=== PATIENT | male | born 1975 | race Caucasian/White ===

== ENCOUNTER 2017-11-17 10:21 | Observation (INO) | payer MEDICAID ==
[~2017-11-17] VITALS: Ht 182.9 cm; Wt 83.5 kg
--- NOTE | ~2017-11-17 | OP ---
PATIENT NAME: OSWALDO VILLEGAS MEDICAL RECORD: [id number] :[birth year] LOCATION:D.MS Cruz2226 ADMISSION DATE:11/17/17 SURGEON: SAGAR CASTELLANOS MD DATE OF OPERATION: 11/18/2017 PREOPERATIVE DIAGNOSES: 1. Left dislocated total hip prosthesis. 2. Chronic alcoholism. POSTOPERATIVE DIAGNOSES: 1. Left dislocated total hip prosthesis. 2. Chronic alcoholism. PROCEDURE: Closed reduction of left total hip prosthesis under general anesthesia with paralytics. SURGEON: Sagar Castellanos MD ANESTHESIA: General. INTRAOPERATIVE COMPLICATIONS: None. SUMMARY OF PATHOLOGIC FINDINGS: When the hip went back in, it was relatively stable. This was done with fluoroscopic guidance. OPERATIVE SUMMARY IN DETAIL: After obtaining the appropriate preoperative orthopedic surgery consent as well as anesthetic consultation, evaluation and clearance, the patient was brought to the operating room and placed in the operating table in supine position. After adequate general endotracheal anesthesia was administered, the patient was given succinylcholine which was ill effective. He was then given rocuronium, which caused for complete paralysis, no twitches. At this point, the hip was very easily reducible. It was stable, taken through a range of motion and did not readily re-dislocate. Abduction pillow was put into place. The patient was reversed, awakened, extubated, and taken to recovery room in stable condition. TRANSINT:[id number] Voice Confirmation ID: [id number] DOCUMENT ID: [id number] SAGAR CASTELLANOS MD at 1410 CC: [id number] DICTATION DATE: 11/19/17 1026 BUSINESS CENTER ATTENDANT: 11/19/17 1207 DIS IN 11/18/17 [facility] [address] [place] [address]
[2017-11-17 16:23] LABS: BASOPHILS 0.7 % (0-2); EOSINOPHILS 0 % (0-7); HEMATOCRIT 35.4 % (42.0-54.0); HEMOGLOBIN 11.9 g/dL (13.5-17.5); LYMPHOCYTES 20.5 % (15-50); MCH 34.4 pg (26.0-34.0); MCHC 33.6 g/dL (31.0-37.0); MCV 102.3 fL (80.0-100.0); MEAN PLATELET VOLUME 9.2 fL (7.4-10.4); MONOCYTES 4.3 % (2-11); NEUTROPHILS 74.5 % (40-80); RBC 3.46 10x6/uL (4.20-6.10); RDW 14.2 % (11.5-14.5); WBC 6.1 10x3/uL (4.8-10.8)
[2017-11-17 16:24] LABS: PLATELET COUNT 104 10x3/uL (130-400)
[2017-11-17 16:40] LABS: ALKALINE PHOSPHATASE 83 U/L (46-116); ALT (SGPT) 64 U/L (10-68); BILIRUBIN - TOTAL 0.53 mg/dL (0.2-1.3); CALC OSMOLALITY 284 mosm/kg (275-300); CALCIUM 8.8 mg/dL (8.5-10.1); CARBON DIOXIDE 25.3 mmol/L (21.0-32.0); CHLORIDE - SERUM 100 mmol/L (98-107); CREATININE - SERUM 0.9 mg/dL (0.6-1.3); GLUCOSE 105 mg/dL (74-106); POTASSIUM - SERUM 3.9 mmol/L (3.5-5.1); PROTEIN - SERUM 8.1 g/dL (6.4-8.2); SODIUM 142 mmol/L (136-145); UREA NITROGEN 18 mg/dL (7-18); eGFR NON AFRICAN AMERICAN > 90 mL/min (90-120)
[2017-11-17 18:50] VITALS: Ht 182.9 cm; Wt 83.5 kg
[2017-11-17] MEDS ORDERED: PAXIL40 MG PO (20:20)
[2017-11-17] MEDS ORDERED: TOPROL XL50 MG PO (20:20)
[2017-11-17] MEDS ORDERED: LIBRIUM25 MG PO (20:21)
[2017-11-17] MEDS ORDERED: PRINZIDE 20-251 TA1 PO (20:21)
[2017-11-17 20:34] VITALS: BP 115/78
[2017-11-18] VITALS: BP 150/93
[2017-11-18 00:03] VITALS: BP 150/93
[2017-11-18 04:16] VITALS: BP 134/84
[2017-11-18 07:51] VITALS: BP 107/80
[2017-11-18 09:48] VITALS: BP 141/92
== END 2017-11-18 12:38 | disposition home or self-care (01) ==
LOC: D.ER 10:21 → D.EDHOLD 13:32 → OBSVTIME 13:33 → D.MS 13:39
PROVIDERS: Nurse Practitioner Family
DX: T84.021A Dislocation of internal left hip prosthesis, initial encounter (principal); F10.20 Alcohol dependence, uncomplicated

== ENCOUNTER 2018-02-21 18:13 | Emergency (ER) | payer MEDICAID ==
[~2018-02-21] VITALS: Ht 182.9 cm; Wt 68.2 kg
[~2018-02-21 18:13] MED LIST: LIBRIUM25 MG PO; PAXIL40 MG PO; PRINZIDE 20-251 TA1 PO; TOPROL XL50 MG PO
[2018-02-21 18:19] VITALS: Ht 182.9 cm; Wt 68.2 kg
[2018-02-21 19:06] LABS: APPEARANCE CLEAR (CLEAR); BILIRUBIN NEGATIVE (NEGATIVE); COLOR DK YELLOW (YELLOW); GLUCOSE NEGATIVE (NEGATIVE); KETONE NEGATIVE (NEGATIVE); NITRITE NEGATIVE (NEGATIVE); PROTEIN TRACE mg/dL (NEGATIVE); UROBILINOGEN NORMAL (NORMAL)
[2018-02-21 19:10] LABS: UDS - AMPHET NEGATIVE QUAL (NEGATIVE); UDS - BARB NEGATIVE QUAL (NEGATIVE); UDS - BENZO POSITIVE QUAL (NEGATIVE); UDS - COCAINE NEGATIVE QUAL (NEGATIVE); UDS - OPIATE NEGATIVE QUAL (NEGATIVE); UDS - PCP NEGATIVE QUAL (NEGATIVE); UDS - THC POSITIVE QUAL (NEGATIVE)
[2018-02-21 19:33] LABS: BASOPHILS 0.6 % (0-2); EOSINOPHILS 1.4 % (0-7); HEMATOCRIT 40.3 % (42.0-54.0); HEMOGLOBIN 13.5 g/dL (13.5-17.5); IMMATURE GRANULOCYTES 0.3 % (0-5); LYMPHOCYTES 29.4 % (15-50); MCH 34.6 pg (26.0-34.0); MCHC 33.5 g/dL (31.0-37.0); MCV 103.3 fL (80.0-100.0); MEAN PLATELET VOLUME 8.9 fL (7.4-10.4); MONOCYTES 3.6 % (2-11); NEUTROPHILS 64.7 % (40-80); RDW 15.8 % (11.5-14.5); WBC 6.6 10x3/uL (4.8-10.8)
[2018-02-21 19:53] LABS: ALBUMIN 3.7 g/dL (3.4-5.0); ALKALINE PHOSPHATASE 88 U/L (46-116); ALT (SGPT) 66 U/L (10-68); BILIRUBIN - TOTAL 0.23 mg/dL (0.2-1.3); CALC OSMOLALITY 293 mosm/kg (275-300); CALCIUM 8.3 mg/dL (8.5-10.1); CARBON DIOXIDE 25.8 mmol/L (21.0-32.0); CHLORIDE - SERUM 108 mmol/L (98-107); CREATININE - SERUM 0.9 mg/dL (0.6-1.3); GLUCOSE 80 mg/dL (74-106); POTASSIUM - SERUM 3.7 mmol/L (3.5-5.1); PROTEIN - SERUM 7.8 g/dL (6.4-8.2); SODIUM 148 mmol/L (136-145); UREA NITROGEN 15 mg/dL (7-18); eGFR NON AFRICAN AMERICAN > 90 mL/min (90-120)
[2018-02-21 19:55] LABS: PLATELET COUNT 192 10x3/uL (130-400)
[2018-02-21 23:00] VITALS: BP 152/94
[2018-02-25 22:07] LABS: CHLORDIAZEPOXIDE None Detected (()); NORCHLORDIAZEPOXIDE None Detected (()); NORDIAZEPAM 0.5 ug/mL (())
== END 2018-02-21 23:00 | disposition home or self-care (01) ==
LOC: D.ER 18:13
PROVIDERS: Family Medicine
DX: F10.129 Alcohol abuse with intoxication, unspecified (principal); F10.10 Alcohol abuse, uncomplicated; I10 Essential (primary) hypertension; F17.200 Nicotine dependence, unspecified, uncomplicated

== ENCOUNTER 2018-02-26 21:08 | Emergency (ER) | payer MEDICAID ==
[~2018-02-26] VITALS: Ht 182.9 cm; Wt 77.1 kg
[2018-02-26 21:25] VITALS: Ht 182.9 cm; Wt 77.1 kg
[2018-02-26 22:42] LABS: BASOPHILS 0.3 % (0-2); EOSINOPHILS 0.6 % (0-7); HEMATOCRIT 34.2 % (42.0-54.0); HEMOGLOBIN 11.6 g/dL (13.5-17.5); IMMATURE GRANULOCYTES 0.3 % (0-5); LYMPHOCYTES 34.2 % (15-50); MCH 34.5 pg (26.0-34.0); MCHC 33.9 g/dL (31.0-37.0); MCV 101.8 fL (80.0-100.0); MEAN PLATELET VOLUME 9.9 fL (7.4-10.4); MONOCYTES 4.9 % (2-11); NEUTROPHILS 59.7 % (40-80); RBC 3.36 10x6/uL (4.20-6.10); WBC 6.3 10x3/uL (4.8-10.8)
[2018-02-26 22:46] LABS: PLATELET COUNT 74 10x3/uL (130-400)
[2018-02-26 22:53] LABS: PLATELET ESTIMATE DECREASED
[2018-02-26 23:00] LABS: ALKALINE PHOSPHATASE 99 U/L (46-116); ALT (SGPT) 53 U/L (10-68); BILIRUBIN - TOTAL 0.23 mg/dL (0.2-1.3); CALC OSMOLALITY 291 mosm/kg (275-300); CALCIUM 7.6 mg/dL (8.5-10.1); CARBON DIOXIDE 31.4 mmol/L (21.0-32.0); CHLORIDE - SERUM 107 mmol/L (98-107); CREATININE - SERUM 0.9 mg/dL (0.6-1.3); GLUCOSE 96 mg/dL (74-106); POTASSIUM - SERUM 3.4 mmol/L (3.5-5.1); PROTEIN - SERUM 7.2 g/dL (6.4-8.2); SODIUM 146 mmol/L (136-145); UREA NITROGEN 14 mg/dL (7-18); eGFR NON AFRICAN AMERICAN > 90 mL/min (90-120)
[2018-02-27 04:48] VITALS: BP 129/84
[2018-02-27] MEDS ORDERED: HYDROCODON-ACE1 EAC7 PO (04:50)
== END 2018-02-27 04:58 | disposition home or self-care (01) ==
LOC: D.ER 21:08
PROVIDERS: Emergency Medicine
DX: S73.005A Unspecified dislocation of left hip, initial encounter (principal); W19.XXXA Unspecified fall, initial encounter; Y93.89 Activity, other specified; Y92.89 Other specified places as the place of occurrence of the external cause

== ENCOUNTER 2018-03-02 21:31 | Emergency (ER) | payer MEDICAID ==
[~2018-03-02] VITALS: Ht 182.9 cm; Wt 83.9 kg
[~2018-03-02 21:31] MED LIST changes: +HYDROCODON-ACE1 EAC7 PO
[2018-03-02 21:34] VITALS: Ht 182.9 cm; Wt 83.9 kg
[2018-03-02 21:56] LABS: APPEARANCE CLEAR (CLEAR); BILIRUBIN NEGATIVE (NEGATIVE); COLOR YELLOW (YELLOW); GLUCOSE NEGATIVE (NEGATIVE); KETONE NEGATIVE (NEGATIVE); NITRITE NEGATIVE (NEGATIVE); PROTEIN NEGATIVE (NEGATIVE); SPECIFIC GRAVITY 1.005 (1.005-1.020); UROBILINOGEN NORMAL (NORMAL)
[2018-03-02 21:57] LABS: BASOPHILS 0.3 % (0-2); IMMATURE GRANULOCYTES 0.3 % (0-5); LYMPHOCYTES 34.5 % (15-50); MCH 34.6 pg (26.0-34.0); MCHC 34.4 g/dL (31.0-37.0); MCV 100.6 fL (80.0-100.0); MEAN PLATELET VOLUME 9.5 fL (7.4-10.4); NEUTROPHILS 58.9 % (40-80); RBC 3.18 10x6/uL (4.20-6.10); RDW 15.9 % (11.5-14.5)
[2018-03-02 22:01] LABS: PLATELET COUNT 45 10x3/uL (130-400)
[2018-03-02 22:14] LABS: UDS - AMPHET NEGATIVE QUAL (NEGATIVE); UDS - BARB NEGATIVE QUAL (NEGATIVE); UDS - BENZO POSITIVE QUAL (NEGATIVE); UDS - COCAINE NEGATIVE QUAL (NEGATIVE); UDS - OPIATE NEGATIVE QUAL (NEGATIVE); UDS - PCP NEGATIVE QUAL (NEGATIVE); UDS - THC NEGATIVE QUAL (NEGATIVE)
[2018-03-02 22:15] LABS: PLATELET ESTIMATE DECREASED
[2018-03-02 22:16] LABS: ALBUMIN 3.4 g/dL (3.4-5.0); ALKALINE PHOSPHATASE 108 U/L (46-116); ALT (SGPT) 39 U/L (10-68); BILIRUBIN - TOTAL 0.76 mg/dL (0.2-1.3); CALC OSMOLALITY 286 mosm/kg (275-300); CALCIUM 8.2 mg/dL (8.5-10.1); CARBON DIOXIDE 30.5 mmol/L (21.0-32.0); CHLORIDE - SERUM 104 mmol/L (98-107); CREATININE - SERUM 0.6 mg/dL (0.6-1.3); GLUCOSE 101 mg/dL (74-106); POTASSIUM - SERUM 3.3 mmol/L (3.5-5.1); PROTEIN - SERUM 7.7 g/dL (6.4-8.2); SODIUM 145 mmol/L (136-145); UREA NITROGEN 7 mg/dL (7-18); eGFR NON AFRICAN AMERICAN > 90 mL/min (90-120)
[2018-03-03 10:30] VITALS: BP 136/92
== END 2018-03-03 11:21 ==
LOC: D.ER 21:31
PROVIDERS: Family Medicine
DX: R45.851 Suicidal ideations (principal); F10.10 Alcohol abuse, uncomplicated; Z86.59 Personal history of other mental and behavioral disorders

== ENCOUNTER 2018-06-17 14:26 | Emergency (ER) | payer MEDICAID ==
[~2018-06-17] VITALS: Ht 182.9 cm; Wt 77.3 kg
[2018-06-17 14:30] VITALS: Ht 182.9 cm; Wt 77.3 kg
[2018-06-17] MEDS ORDERED: TORADOL10 MG PO (17:22)
[2018-06-17 17:30] VITALS: BP 123/80
== END 2018-06-17 17:31 | disposition home or self-care (01) ==
LOC: D.ER 14:26
DX: S01.01XA Laceration without foreign body of scalp, initial encounter (principal); Y04.2XXA Assault by strike against or bumped into by another person, initial encounter; Y93.89 Activity, other specified; Y92.019 Unspecified place in single-family (private) house as the place of occurrence of the external cause; R51 Headache

== ENCOUNTER 2018-08-28 17:16 | Emergency (ER) | payer SELFPAY ==
[~2018-08-28] VITALS: Ht 182.9 cm; Wt 79.5 kg
[~2018-08-28 17:16] MED LIST changes: +TORADOL10 MG PO
[2018-08-28 17:19] VITALS: Ht 182.9 cm; Wt 79.5 kg
[2018-08-28 17:52] LABS: UDS - AMPHET NEGATIVE QUAL (NEGATIVE); UDS - BARB NEGATIVE QUAL (NEGATIVE); UDS - BENZO NEGATIVE QUAL (NEGATIVE); UDS - COCAINE NEGATIVE QUAL (NEGATIVE); UDS - OPIATE NEGATIVE QUAL (NEGATIVE); UDS - PCP NEGATIVE QUAL (NEGATIVE); UDS - THC NEGATIVE QUAL (NEGATIVE)
[2018-08-28 18:18] LABS: BASOPHILS 0.4 % (0-2); EOSINOPHILS 0.2 % (0-7); IMMATURE GRANULOCYTES 0.5 % (0-5); LYMPHOCYTES 27.3 % (15-50); MCH 32.3 pg (26.0-34.0); MCHC 34.2 g/dL (31.0-37.0); MCV 94.3 fL (80.0-100.0); MEAN PLATELET VOLUME 8.8 fL (7.4-10.4); MONOCYTES 5.1 % (2-11); NEUTROPHILS 66.5 % (40-80); RBC 4.03 10x6/uL (4.20-6.10); RDW 12.6 % (11.5-14.5); WBC 12.3 10x3/uL (4.8-10.8)
[2018-08-28 18:21] LABS: PLATELET COUNT 100 10x3/uL (130-400)
[2018-08-28 18:35] LABS: CALC OSMOLALITY 284 mosm/kg (275-300); CALCIUM 8.5 mg/dL (8.5-10.1); CARBON DIOXIDE 23.9 mmol/L (21.0-32.0); CHLORIDE - SERUM 104 mmol/L (98-107); CREATININE - SERUM 0.7 mg/dL (0.6-1.3); GLUCOSE 104 mg/dL (74-106); POTASSIUM - SERUM 3.3 mmol/L (3.5-5.1); SODIUM 142 mmol/L (136-145); THYROID STIMULATING HORMONE 0.78 uIU/mL (0.36-3.74); UREA NITROGEN 17 mg/dL (7-18); eGFR NON AFRICAN AMERICAN > 90 mL/min (90-120)
[2018-08-29 06:44] VITALS: BP 161/101
== END 2018-08-29 06:44 | disposition home or self-care (01) ==
LOC: D.ER 17:16
PROVIDERS: Family Medicine
DX: F32.9 Major depressive disorder, single episode, unspecified (principal); Z72.89 Other problems related to lifestyle; R45.851 Suicidal ideations; I10 Essential (primary) hypertension; F17.200 Nicotine dependence, unspecified, uncomplicated

== ENCOUNTER 2018-12-22 15:15 | Emergency (ER) | payer MEDICAID ==
[2018-12-22 15:20] VITALS: BMI 24.4
[2018-12-22 15:50] LABS: HEMATOCRIT 38.9 % (42.0-54.0); HEMOGLOBIN 13.3 g/dL (13.5-17.5); MCH 34.1 pg (26.0-34.0); MCHC 34.2 g/dL (31.0-37.0); MCV 99.7 fL (80.0-100.0); MEAN PLATELET VOLUME 9.3 fL (7.4-10.4); RDW 14.2 % (11.5-14.5); WBC 4.4 10x3/uL (4.8-10.8)
[2018-12-22 15:52] LABS: PLATELET COUNT 200 10x3/uL (130-400)
[2018-12-22 16:05] VITALS: BP 128/82
[2018-12-22 16:05] LABS: ALBUMIN 3.6 g/dL (3.4-5.0); ALKALINE PHOSPHATASE 86 U/L (46-116); ALT (SGPT) 47 U/L (10-68); BILIRUBIN - TOTAL 0.14 mg/dL (0.2-1.3); CALC OSMOLALITY 289 mosm/kg (275-300); CALCIUM 8.2 mg/dL (8.5-10.1); CARBON DIOXIDE 25.1 mmol/L (21.0-32.0); CHLORIDE - SERUM 110 mmol/L (98-107); CREATININE - SERUM 0.8 mg/dL (0.6-1.3); GLUCOSE 105 mg/dL (74-106); POTASSIUM - SERUM 3.9 mmol/L (3.5-5.1); PROTEIN - SERUM 7.7 g/dL (6.4-8.2); SODIUM 145 mmol/L (136-145); UREA NITROGEN 14 mg/dL (7-18); eGFR NON AFRICAN AMERICAN > 90 mL/min (90-120)
[2018-12-22 16:07] LABS: MAGNESIUM - SERUM 1.9 mg/dL (1.8-2.4)
[2018-12-22 16:18] LABS: BASOPHILS 1 % (0-2); EOSINOPHILS 5 % (0-7); LYMPHOCYTES 52 % (15-50); MONOCYTES 1 % (2-11); NEUTROPHILS 41 % (40-80); STOMATOCYTES 1+; TARGET CELLS OCC; TEAR DROP CELLS OCC
[2018-12-22 16:19] LABS: PLATELET ESTIMATE NORMAL
[2018-12-22] MEDS ORDERED: LIBRIUM25 MG PO (16:19)
[2018-12-22 16:38] LABS: UDS - AMPHET NEGATIVE QUAL (NEGATIVE); UDS - BARB NEGATIVE QUAL (NEGATIVE); UDS - BENZO NEGATIVE QUAL (NEGATIVE); UDS - COCAINE NEGATIVE QUAL (NEGATIVE); UDS - OPIATE NEGATIVE QUAL (NEGATIVE); UDS - PCP NEGATIVE QUAL (NEGATIVE); UDS - THC NEGATIVE QUAL (NEGATIVE)
[2018-12-22 16:43] LABS: APPEARANCE CLEAR (CLEAR); BILIRUBIN NEGATIVE (NEGATIVE); COLOR YELLOW (YELLOW); GLUCOSE NEGATIVE (NEGATIVE); KETONE NEGATIVE (NEGATIVE); NITRITE NEGATIVE (NEGATIVE); PROTEIN NEGATIVE (NEGATIVE); SPECIFIC GRAVITY 1.015 (1.005-1.020); UROBILINOGEN NORMAL (NORMAL)
== END 2018-12-22 16:50 | disposition home or self-care (01) ==
LOC: D.ER 15:15
PROVIDERS: Emergency Medicine
DX: F10.10 Alcohol abuse, uncomplicated (principal)

== ENCOUNTER 2019-02-02 02:26 | Emergency (ER) | payer MEDICAID ==
[~2019-02-02] VITALS: Ht 182.9 cm; Wt 79.4 kg
[2019-02-02 02:31] VITALS: Ht 182.9 cm; Wt 79.4 kg
[2019-02-02] MEDS ORDERED: BLOOD PRESSURE MED (02:44)
[2019-02-02] MEDS ORDERED: PAXIL40 MG PO (02:44)
[2019-02-02 03:19] LABS: BASOPHILS 0.2 % (0-2); EOSINOPHILS 0.5 % (0-7); HEMATOCRIT 43.8 % (42.0-54.0); HEMOGLOBIN 15.1 g/dL (13.5-17.5); IMMATURE GRANULOCYTES 0.4 % (0-5); LYMPHOCYTES 10.4 % (15-50); MCH 33.6 pg (26.0-34.0); MCHC 34.5 g/dL (31.0-37.0); MCV 97.6 fL (80.0-100.0); MEAN PLATELET VOLUME 10.7 fL (7.4-10.4); MONOCYTES 7.9 % (2-11); NEUTROPHILS 80.6 % (40-80); RBC 4.49 10x6/uL (4.20-6.10); WBC 14.1 10x3/uL (4.8-10.8)
[2019-02-02 03:36] LABS: PLATELET COUNT 109 10x3/uL (130-400)
[2019-02-02 03:52] LABS: ALBUMIN 3.5 g/dL (3.4-5.0); ANION GAP 25.6 mmol/L (8-16); BILIRUBIN - TOTAL 0.88 mg/dL (0.2-1.3); CALCIUM 8.5 mg/dL (8.5-10.1); CARBON DIOXIDE 16.6 mmol/L (21.0-32.0); CREATININE - SERUM 1.2 mg/dL (0.6-1.3); POTASSIUM - SERUM 3.2 mmol/L (3.5-5.1); PROTEIN - SERUM 7.7 g/dL (6.4-8.2)
[2019-02-02 05:43] VITALS: BP 138/66
== END 2019-02-02 05:45 | disposition other institution (70) ==
LOC: D.ER 02:26
PROVIDERS: Emergency Medicine
DX: F15.150 Other stimulant abuse with stimulant-induced psychotic disorder with delusions (principal); S11.81XA Laceration without foreign body of other specified part of neck, initial encounter; X78.8XXA Intentional self-harm by other sharp object, initial encounter; Y93.89 Activity, other specified; Y92.89 Other specified places as the place of occurrence of the external cause

== ENCOUNTER 2019-04-22 15:34 | Inpatient (IN) | payer MEDICAID ==
[~2019-04-22] VITALS: Ht 182.9 cm; Wt 79.5 kg
[~2019-04-22 15:34] MED LIST changes: +BLOOD PRESSURE MED
[2019-04-22 16:56] LABS: BASOPHILS 0.7 % (0-2); EOSINOPHILS 0.3 % (0-7); IMMATURE GRANULOCYTES 0.2 % (0-5); LYMPHOCYTES 31.4 % (15-50); MCH 34.4 pg (26.0-34.0); MCV 98.3 fL (80.0-100.0); MEAN PLATELET VOLUME 8.9 fL (7.4-10.4); MONOCYTES 3.4 % (2-11); PLATELET COUNT 226 10x3/uL (130-400); RBC 4.07 10x6/uL (4.20-6.10); RDW 13.8 % (11.5-14.5); WBC 10.7 10x3/uL (4.8-10.8)
[2019-04-22 17:07] LABS: ALBUMIN 4.2 g/dL (3.4-5.0); ALKALINE PHOSPHATASE 90 U/L (46-116); ALT (SGPT) 84 U/L (10-68); BILIRUBIN - TOTAL 0.21 mg/dL (0.2-1.3); CALC OSMOLALITY 291 mosm/kg (275-300); CALCIUM 8.9 mg/dL (8.5-10.1); CARBON DIOXIDE 26.5 mmol/L (21.0-32.0); CHLORIDE - SERUM 105 mmol/L (98-107); GLUCOSE 105 mg/dL (74-106); POTASSIUM - SERUM 4.3 mmol/L (3.5-5.1); PROTEIN - SERUM 8.1 g/dL (6.4-8.2); SODIUM 145 mmol/L (136-145); UREA NITROGEN 21 mg/dL (7-18); eGFR NON AFRICAN AMERICAN 87 mL/min (90-120)
[2019-04-22 17:18] LABS: CREATINE KINASE 294 UL (21-232); MAGNESIUM - SERUM 1.8 mg/dL (1.8-2.4); TROPONIN-I < 0.017 ng/mL (0.000-0.060)
[2019-04-22 21:30] LABS: CKMB 2.5 U/L (0.0-3.6); CREATINE KINASE 296 UL (21-232); TROPONIN-I < 0.017 ng/mL (0.000-0.060)
[2019-04-23 00:37] VITALS: BP 141/99; Ht 182.9 cm; Wt 79.5 kg
[2019-04-23 00:41] VITALS: BP 133/84
[2019-04-23 03:23] LABS: BASOPHILS 0.4 % (0-2); EOSINOPHILS 0.1 % (0-7); HEMATOCRIT 34.6 % (42.0-54.0); HEMOGLOBIN 12.3 g/dL (13.5-17.5); IMMATURE GRANULOCYTES 0.3 % (0-5); LYMPHOCYTES 32.5 % (15-50); MCH 34.4 pg (26.0-34.0); MCHC 35.5 g/dL (31.0-37.0); MCV 96.6 fL (80.0-100.0); MEAN PLATELET VOLUME 8.8 fL (7.4-10.4); MONOCYTES 7.1 % (2-11); NEUTROPHILS 59.6 % (40-80); PLATELET COUNT 195 10x3/uL (130-400); RBC 3.58 10x6/uL (4.20-6.10); RDW 13.8 % (11.5-14.5); WBC 9.8 10x3/uL (4.8-10.8)
[2019-04-23 04:00] LABS: ALBUMIN 3.7 g/dL (3.4-5.0); ALKALINE PHOSPHATASE 68 U/L (46-116); ALT (SGPT) 70 U/L (10-68); BILIRUBIN - TOTAL 0.28 mg/dL (0.2-1.3); CALC OSMOLALITY 281 mosm/kg (275-300); CALCIUM 8.2 mg/dL (8.5-10.1); CHLORIDE - SERUM 106 mmol/L (98-107); CKMB 2.6 U/L (0.0-3.6); CREATINE KINASE 458 UL (21-232); CREATININE - SERUM 0.8 mg/dL (0.6-1.3); GLUCOSE 70 mg/dL (74-106); POTASSIUM - SERUM 3.9 mmol/L (3.5-5.1); PROTEIN - SERUM 7.5 g/dL (6.4-8.2); SODIUM 142 mmol/L (136-145); TROPONIN-I < 0.017 ng/mL (0.000-0.060); UREA NITROGEN 14 mg/dL (7-18); eGFR NON AFRICAN AMERICAN > 90 mL/min (90-120)
[2019-04-23 04:35] VITALS: BP 176/108
[2019-04-23 09:37] LABS: UDS - AMPHET NEGATIVE QUAL (NEGATIVE); UDS - BARB NEGATIVE QUAL (NEGATIVE); UDS - BENZO NEGATIVE QUAL (NEGATIVE); UDS - COCAINE NEGATIVE QUAL (NEGATIVE); UDS - OPIATE POSITIVE QUAL (NEGATIVE); UDS - PCP NEGATIVE QUAL (NEGATIVE); UDS - THC POSITIVE QUAL (NEGATIVE)
[2019-04-23 09:50] LABS: CKMB 2.5 U/L (0.0-3.6); CREATINE KINASE 539 UL (21-232)
[2019-04-23 09:51] LABS: TROPONIN-I < 0.017 ng/mL (0.000-0.060)
[2019-04-23 10:19] LABS: APPEARANCE CLEAR (CLEAR); COLOR YELLOW (YELLOW); GLUCOSE NEGATIVE (NEGATIVE); NITRITE NEGATIVE (NEGATIVE); PROTEIN NEGATIVE (NEGATIVE); SPECIFIC GRAVITY 1.025 (1.005-1.020)
[2019-04-23 10:20] LABS: BACTERIA FEW /hpf (NONE SEEN); BILIRUBIN NEGATIVE (NEGATIVE); EPITHELIAL CELLS RARE /hpf (0-5); KETONE MODERATE mg/dL (NEGATIVE); RED CELLS - URINE OCC /hpf (0-5); UROBILINOGEN NORMAL (NORMAL)
[2019-04-23 12:37] VITALS: BP 163/94
[2019-04-23] MEDS ORDERED: CATAPRES0.1 MG PO (12:43)
[2019-04-23] MEDS ORDERED: NORVASC5 MG PO (13:30)
[2019-04-23] MEDS ORDERED: HYDROCODON-ACE1 EA10 PO (13:35)
[2019-04-23 13:55] VITALS: BP 152/92
--- NOTE | 2019-04-23 14:55 | MORECARE ---
CASE MANAGEMENT DISCHARGE SUMMARY PATIENT: OSWALDO VILLEGAS UNIT: [id number] ADM DATE: 04/22/19 AGE: 44 : 79 SEX: M ROOM/BED: D.2233 AUTHOR: JEB GOMEZ PHYSICIAN: REFERRING PHYSICIAN: JESIKA GRIDER MD DATE OF SERVICE: 04/23/19 Discharge Plan Patient Name: OSWALDO VILLEGAS [facility] : 1975 Planned Disposition: Home Anticipated Discharge Date: 04/23/19 Discharge Date: Expected LOS: 1 Initial Reviewer: [email or web address] Initial Review Date: 04/24/2019 Generated: 04/23/19 3:54 pm DCPIA - Discharge Planning Initial Assessment Updated by [email or web address]: Tahira Diaz on 04/23/19 2:54 pm * Is the patient Alert and Oriented? Yes * How many steps to enter\exit or inside your home? 3w/rails/0 * PCP Dr. Hilario * [place] [facility] [place] [address] * Preadmission Environment Home with Family * ADLs Independent * Equipment None * List name and contact numbers for known caregivers / representatives who currently or will assist patient after discharge: Isabela Mckeon [facility] - [phone] * Verbal permission to speak to the caregivers and representatives has been obtained from the patient. Yes * Community resources currently utilized None * Additional services required to return to the preadmission environment? No * Can the patient safely return to the preadmission environment? Yes * Has this patient been hospitalized within the prior 30 days at any hospital? No Patient Name: OSWALDO VILLEGAS Page [id number] at 1455 All edits/amendments must be made on the electronic document DICTATION DATE: 04/23/191453 GENERAL ACCOUNTING MANAGER: TAMIKO 04/23/191453 RPT#: [id number] DC DATE: STATUS: ADM IN [facility] [address] [place] [address] END OF REPORT
--- NOTE | 2019-04-23 15:03 | MORECARE ---
CASE MANAGEMENT DISCHARGE SUMMARY PATIENT: OSWALDO VILLEGAS UNIT: [id number] ADM DATE: 04/22/19 AGE: 44 : 79 SEX: M ROOM/BED: D.2233 AUTHOR: PATRICIADOC PHYSICIAN: REFERRING PHYSICIAN: JESIKA GRIDER MD DATE OF SERVICE: 04/23/19 Discharge Plan Patient Name: OSWALDO VILLEGAS Facility: [facility]:[place] : 1975 Planned Disposition: Home Anticipated Discharge Date: 04/23/19 Discharge Date: 04/23/2019 Expected LOS: 1 Initial Reviewer: [email or web address] Initial Review Date: 04/24/2019 Generated: 04/23/19 4:03 pm Comments DCP- Discharge Planning Updated by [email or web address]: Tahira Diaz on 04/23/19 1:[address] Patient Name: OSWALDO VILLEGAS Admission Status: ER Accout number: [id number] Admission Date: 04-22-2019 : 1975 Admission Diagnosis: Attending: JESIKA SOLER Current LOS: 1 Anticipated DC Date: 04-23-2019 Planned Disposition: Home Primary Insurance: MEDICAID [place] Discharge Planning Comments: CM met with patient to complete initial dc planning assessment. CM educated patient on the CM role and verbal consent given by patient to complete assessment. Patient lives at home with his mote and step mother. He plans to return home and feels this is a safe discharge. CM discussed availability of home health and medical equipment. Patient denied needs at this time. CM will continue to follow and will assist as needed with dc plans/needs. States his mother will pick him up on discharge. Air Shovel Operator: Tahira Diaz DCPIA - Discharge Planning Initial Assessment Updated by [email or web address]: Tahira Diaz on 04/23/19 2:54 pm * Is the patient Alert and Oriented? Yes * How many steps to enter\exit or inside your home? 3w/rails/0 * PCP Dr. Hilario * Pharmacy [facility] [address] * Preadmission Environment Home with Family * ADLs Independent * Equipment None * List name and contact numbers for known caregivers / representatives who currently or will assist patient after discharge: Isabela Mckeon - mother - [phone] * Verbal permission to speak to the caregivers and representatives has been obtained from the patient. Yes * Community resources currently utilized None * Additional services required to return to the preadmission environment? No * Can the patient safely return to the preadmission environment? Yes * Has this patient been hospitalized within the prior 30 days at any hospital? No Last DP export: 04/23/19 1:55 pm Patient Name: OSWALDO VILLEGAS Page [id number] at 1503 All edits/amendments must be made on the electronic document DICTATION DATE: 04/23/19 1502 MAINTENANCE ASSISTANT: TAMIKO 04/23/19 1502 RPT#: [id number] DC DATE:04/23/19 STATUS: DIS IN [facility] [address] [place] [address] END OF REPORT
--- NOTE | 2019-04-24 12:40 | OP ---
PATIENT NAME: OSWALDO VILLEGAS MEDICAL RECORD: [id number] :[birth year] LOCATION:D.MS Cruz2233 ADMISSION DATE:04/22/19 SURGEON: SAGAR CASTELLANOS MD DATE OF OPERATION: 04/23/2019 PREOPERATIVE DIAGNOSIS: Closed dislocation of a left total hip prosthesis. POSTOPERATIVE DIAGNOSIS: Closed dislocation of a left total hip prosthesis. PROCEDURE: Closed reduction of left total hip prosthesis under anesthesia - General. ANESTHESIA: General. INTRAOPERATIVE COMPLICATIONS: None. SUMMARY OF PATHOLOGIC FINDINGS: Essentially none. INDICATIONS: Mr. Holbrook is a patient with a known dislocated hip. Unfortunately, he has been an addict and abuser and he has been in several times with dislocated hip as long as he is stable. He tends not to dislocate his hip. This is his first dislocation in approximately 12 months. He presented last night with a dislocation, which was irreducible under relatively conscious sedation. He was brought to the operating room this morning for paralytics and resulted in excellent reduction. OPERATIVE SUMMARY IN DETAIL: After obtaining the appropriate preoperative orthopedic surgery consent as well as anesthetic consultation, evaluation and clearance, the patient was brought to the operating room and left on his on the [facility]. On the [facility], he was given adequate sedation including but not limited to succinylcholine. After he was de-fasciculated, traction-countertraction maneuver resulted in excellent reduction of the hip, it was quite difficult to get in keeping with his prior history of dislocations. After reduction was made, intraoperative radiographs were taken that showed excellent reduction. He was then placed in an abductor splint and sent to the recovery room in stable condition. TRANSINT:[id number] Voice Confirmation ID: [id number] DOCUMENT ID: [id number] SAGAR CASTELLANOS MD at 1240 CC: [id number] DICTATION DATE: 04/23/192121 DISABILITIES SERVICES OFFICER: 04/24/19 0126 DIS IN 04/23/19 [facility] [id number] [place] [address]
--- NOTE | 2019-04-28 12:41 | MORECARE ---
CASE MANAGEMENT DISCHARGE SUMMARY PATIENT: OSWALDO VILLEGAS UNIT: [id number] ADM DATE: 04/22/19 AGE: 44 : 79 SEX: M ROOM/BED: D.2233 AUTHOR: PATRICIADOC PHYSICIAN: REFERRING PHYSICIAN: JESIKA GRIDER MD DATE OF SERVICE: 04/28/19 Discharge Plan Patient Name: OSWALDO VILLEGAS Facility: [facility]:[place] : 1975 Planned Disposition: Home Anticipated Discharge Date: 04/23/19 Discharge Date: 04/23/2019 Expected LOS: 1 Initial Reviewer: [email or web address] Initial Review Date: 04/24/2019 Generated: 04/28/19 1:41 pm Comments DCP- Discharge Planning Updated by [id number]: Tahira Diaz on 04/23/19 1:[address] Patient Name: OSWALDO VILLEGAS Admission Status: ER Accout number: [id number] Admission Date: 04-22-2019 : 1975 Admission Diagnosis: Attending: JESIKA SOLER Current LOS: 1 Anticipated DC Date: 04-23-2019 Planned Disposition: Home Primary Insurance: MEDICAID [place] Discharge Planning Comments: CM met with patient to complete initial dc planning assessment. CM educated patient on the CM role and verbal consent given by patient to complete assessment. Patient lives at home with his mote and step mother. He plans to return home and feels this is a safe discharge. CM discussed availability of home health and medical equipment. Patient denied needs at this time. CM will continue to follow and will assist as needed with dc plans/needs. States his mother will pick him up on discharge. Senior Marketing Manager: Tahira Diaz DCPIA - Discharge Planning Initial Assessment Updated by [email or web address]: Tahira Diaz on 04/23/19 2:54 pm * Is the patient Alert and Oriented? Yes * How many steps to enter\exit or inside your home? 3w/rails/0 * PCP Dr. Hilario * Pharmacy [facility] [address] * Preadmission Environment Home with Family * ADLs Independent * Equipment None * List name and contact numbers for known caregivers / representatives who currently or will assist patient after discharge: Isabela Mckeon - mother - [phone] * Verbal permission to speak to the caregivers and representatives has been obtained from the patient. Yes * Community resources currently utilized None * Additional services required to return to the preadmission environment? No * Can the patient safely return to the preadmission environment? Yes * Has this patient been hospitalized within the prior 30 days at any hospital? No Last DP export: 04/23/19 2:03 pm Patient Name: OSWALDO VILLEGAS Page [phone] at 1241 All edits/amendments must be made on the electronic document DICTATION DATE: 04/28/19 1241 RETAIL SALESPERSON: TAMIKO 04/28/19 1241 RPT#: [id number] DC DATE:04/23/19 STATUS: DIS IN [facility] [facility] [id number] [place] [address] END OF REPORT
== END 2019-04-23 15:02 | disposition home or self-care (01) | DRG 561 ==
LOC: D.ER 15:34 → D.MS 17:49
PROVIDERS: Family Medicine; Orthopaedic Surgery; ADMIT Family Medicine Adult Medicine; ATTEND Family Medicine Adult Medicine
PROC: 0SWBXJZ Revision of Synthetic Substitute in Left Hip Joint, External Approach (ICD-10-PCS; principal; 2019-04-23 07:39)
DX: T84.021A Dislocation of internal left hip prosthesis, initial encounter (principal); F10.129 Alcohol abuse with intoxication, unspecified; Y90.8 Blood alcohol level of 240 mg/100 ml or more; W19.XXXA Unspecified fall, initial encounter

== ENCOUNTER → 2019-05-07 18:11 | Outpatient (CLI) | payer MEDICAID ==
[2019-04-23 00:37] VITALS: BMI 23.8
[~2019-05-07 18:11] MED LIST changes: +CATAPRES0.1 MG PO; +HYDROCODON-ACE1 EA10 PO; +MAG-OXIDE400 MG PO; +NORVASC5 MG PO
== END | disposition home or self-care (01) ==
LOC: D.LABREF 18:11
PROVIDERS: ATTEND Orthopaedic Surgery
DX: T84.84XA Pain due to internal orthopedic prosthetic devices, implants and grafts, initial encounter (principal)

== ENCOUNTER 2019-05-09 14:52 | Inpatient (IN) | payer MEDICAID ==
[~2019-05-09] VITALS: Ht 180.3 cm; Wt 79.5 kg
[~2019-05-09 14:52] MED LIST changes: -MAG-OXIDE400 MG PO
[2019-05-13] MEDS ORDERED: MAG-OXIDE400 MG PO (11:01)
[2019-05-27] MEDS ORDERED: PROZAC20 MG PO (14:45)
[2019-05-27] MEDS ORDERED: TENORMIN25 MG PO (14:46)
[2019-05-27] MEDS ORDERED: NEURONTIN 300300 MG PO (14:46)
[2019-05-28 12:24] LABS: BASOPHILS 0.3 % (0-2); EOSINOPHILS 1.7 % (0-7); HEMATOCRIT 40.4 % (42.0-54.0); HEMOGLOBIN 13.8 g/dL (13.5-17.5); IMMATURE GRANULOCYTES 0.3 % (0-5); LYMPHOCYTES 31.6 % (15-50); MCH 34.2 pg (26.0-34.0); MCHC 34.2 g/dL (31.0-37.0); MONOCYTES 5.9 % (2-11); NEUTROPHILS 60.2 % (40-80); PLATELET COUNT 250 10x3/uL (130-400); RBC 4.04 10x6/uL (4.20-6.10); RDW 12.6 % (11.5-14.5); WBC 11.4 10x3/uL (4.8-10.8)
[2019-05-28 12:31] LABS: CALC OSMOLALITY 288 mosm/kg (275-300); CALCIUM 9.2 mg/dL (8.5-10.1); CARBON DIOXIDE 27.1 mmol/L (21.0-32.0); CHLORIDE - SERUM 107 mmol/L (98-107); CREATININE - SERUM 0.8 mg/dL (0.6-1.3); GLUCOSE 101 mg/dL (74-106); POTASSIUM - SERUM 4.2 mmol/L (3.5-5.1); SODIUM 144 mmol/L (136-145); UREA NITROGEN 17 mg/dL (7-18); eGFR NON AFRICAN AMERICAN > 90 mL/min (90-120)
[2019-05-28 12:32] LABS: APPEARANCE CLEAR (CLEAR); BILIRUBIN NEGATIVE (NEGATIVE); COLOR STRAW (YELLOW); GLUCOSE NEGATIVE (NEGATIVE); KETONE NEGATIVE (NEGATIVE); NITRITE NEGATIVE (NEGATIVE); PROTEIN NEGATIVE (NEGATIVE); SPECIFIC GRAVITY 1.005 (1.005-1.020); UROBILINOGEN NORMAL (NORMAL)
[2019-05-28 12:41] LABS: APTT 25.8 SECONDS (22.8-39.4); INR 0.86 (0.85-1.17); PROTIME 11.3 SECONDS (11.6-15.0)
[2019-06-02] VITALS (9 sets, daily range): BP systolic 102–161; BP diastolic 56–105; Ht 180.3 cm; Wt 79.5 kg
--- NOTE | 2019-06-02 16:14 | NUR ---
CONSULTED WITH ABOUT PT BP. V.O TO GIVE 10MG IV OF HYDRALIZINE NOW FOR BP GIVEN. V.O READ BACK CORRECT
--- NOTE | 2019-06-02 19:20 | NUR ---
LYING IN BED. ALERT AND ORIENTED X4. ANXIOUS AND RESTLESS. HX OF METH AND MARIJUANA USE OF 05/27/19. RESP EVEN AND NONLABORED. SCD NOTED TO RLE. DRSG NOTED TO LT HIP IS C/D/I. PEDAL PULSES GOOD BILAT. NO EDEMA NOTED. 1/2 NS @ 100 ML/HR INFUSING IN RT HAND. RATES PAIN IN LT HIP 8. MEDICATED WITH PERCOCET ORDERED. HASNT VOIDED SINCE SURGERY. WILL CONT TO MONITOR. SR ELEVATED X2. CL IN REACH.
--- NOTE | 2019-06-02 23:00 | NUR ---
VOIDED IN URINAL. CL IN REACH.
--- NOTE | 2019-06-02 23:47 | NUR ---
MEDICATED WITH PERCOCET FOR C/O PAIN IN LT HIP RATING 7. CL IN REACH.
[2019-06-03 00:40] VITALS: BP 121/68
[2019-06-03 04:00] VITALS: BP 127/84
--- NOTE | 2019-06-03 04:20 | NUR ---
MEDICATED WITH PERCOCET FOR C/O PAIN IN LT HIP. CL IN REACH.
[2019-06-03 05:39] LABS: HEMATOCRIT 33.1 % (42.0-54.0); HEMOGLOBIN 10.9 g/dL (13.5-17.5); MCH 33.1 pg (26.0-34.0); MCHC 32.9 g/dL (31.0-37.0); MCV 100.6 fL (80.0-100.0); RBC 3.29 10x6/uL (4.20-6.10); RDW 12.9 % (11.5-14.5); WBC 5.7 10x3/uL (4.8-10.8)
[2019-06-03 05:47] LABS: PLATELET COUNT 82 10x3/uL (130-400)
[2019-06-03 07:05] LABS: PLATELET ESTIMATE DECREASED
--- NOTE | 2019-06-03 07:18 | NUR ---
ALERT AND ORIENTED. LUNGS CLEAR BILATERALLY IN ALL BERNAL. HEART SOUNDS S1 AND S2 HEARD IN ALL BERNAL. BOWEL SOUNDS ACTIVE X 4. DRSG C/D/I TO LEFT HIP. SKIN OTHERWISE INTACT WITHOUT REDNESS. IV TO RIGHT HAND PATENT WITHOUT REDNESS. DENIES PAIN. DENIES NEEDS. BED LOW. CALL LIRA AND PERSONAL ITEMS IN REACH. WILL CONTINUE TO MONITOR.
--- NOTE | 2019-06-03 08:25 | NUR ---
PATIENT ASSISTED OOB TO CHAIR PER ORDER. SLIGHTLY UNSTEADY ON LEFT SIDE. STANDBY TO X 1 ASSITED NEEDED. STATES WILL USE CALL LIGHT IF NEEDS TO GO TO BATHROOM. DENIES FURTHER NEEDS. WILL CONTINUE TO MONITOR.
[2019-06-03 08:29] VITALS: BP 135/98
--- NOTE | 2019-06-03 08:37 | NUR ---
SPOKE WITH MIKE GASCA WHO STATES OK TO TURN FLUIDS DOWN TO 30/HR D/T LONG SURGICAL IV TUBE INSTEAD OF SL IV. FLUIDS DECREASED TO 30.
--- NOTE | 2019-06-03 08:56 | NUR ---
STATES PRN TORADOL DID NOT HELP PAIN. PRN PERCOCET GIVEN FOR PAIN 03/29.
[2019-06-03 10:19] LABS: ALBUMIN 2.9 g/dL (3.4-5.0); ANION GAP 9.6 mmol/L (8-16); BILIRUBIN - TOTAL 0.54 mg/dL (0.2-1.3); CALCIUM 7.3 mg/dL (8.5-10.1); CARBON DIOXIDE 30.4 mmol/L (21.0-32.0); CREATININE - SERUM 1.3 mg/dL (0.6-1.3); PROTEIN - SERUM 5.8 g/dL (6.4-8.2)
--- NOTE | 2019-06-03 11:00 | NUR ---
Rehab Prescreening Consult recieved and the chart has been reviewed. He has [place] Medicaid as a payor source which unfortunantly is not contracted for ARU at [facility]. Discussed with the CM Alyce Puckett RN. Farzaneh Fernandes RN Clinical Liaison, Rehab
--- NOTE | 2019-06-03 12:21 | NUR ---
RESTING IN BED. DENIES NEEDS. WILL CONTINUE TO MONITOR.
[2019-06-03 12:38] VITALS: BP 142/91
--- NOTE | 2019-06-03 14:24 | NUR ---
RESTING IN BED. REQUESTED AND GIVEN PRN PAIN MEDS. DENIES NEEDS. WILL CONTINUE TO MONITOR.
--- NOTE | 2019-06-03 14:30 | NUR ---
PT COMPLETED BED MOB WITH SPV. PT COMPLETED EOB SITTING WITH SBA. PT COMPLETED ORAL HGYIENE WITH TOOTHETTE WITH SET UP. PT COMPLETED FACE WASH WITH SET UP. THANK YOU, BRENT WALLACE
--- NOTE | 2019-06-03 15:26 | NUR ---
RESTING IN BED. DENIES NEEDS. WILL CONTINUE TO MONITOR.
--- NOTE | 2019-06-03 15:59 | MORECARE ---
CASE MANAGEMENT DISCHARGE SUMMARY PATIENT: OSWALDO VILLEGAS UNIT: [id number] ADM DATE: 06/02/19 AGE: 44 : [birth year] SEX: M ROOM/BED: D.2211 AUTHOR: JEB GOMEZ PHYSICIAN: REFERRING PHYSICIAN: SAGAR CASTELLANOS MD DATE OF SERVICE: 06/03/19 Discharge Plan Patient Name: OSWALDO VILLEGAS [facility] [facility] 1975 Planned Disposition: Home or Self Care Anticipated Discharge Date: Discharge Date: Expected LOS: Initial Reviewer: [email or web address] Initial Review Date: 06/02/2019 Generated: 06/03/19 4:58 pm DCPIA - Discharge Planning Initial Assessment Updated by [email or web address]: Nishi Puckett on 06/03/19 3:58 pm * Is the patient Alert and Oriented? Yes * How many steps to enter\exit or inside your home? * PCP JANELLE * Pharmacy [facility] * Preadmission Environment Home with Family * ADLs Independent * Equipment Shower Chair Walker * List name and contact numbers for known caregivers / representatives who currently or will assist patient after discharge: KALLIE ( MOTHER) [phone] * Verbal permission to speak to the caregivers and representatives has been obtained from the patient. N/A * Please name any agencies selected above. WAS AT [facility] IN [place] FOR PSYCHIATRIC HELP DISHCARGED FROM [facility] ON 05/[facility] * Additional services required to return to the preadmission environment? Yes * Can the patient safely return to the preadmission environment? Yes * Has this patient been hospitalized within the prior 30 days at any hospital? Yes External Providers External Provider: [facility] Next Contact Date: Service Request Date: Service Type: Resolution: Reviewer: Comments: Patient Name: OSWALDO VILLEGAS Page [id number] at 1554 All edits/amendments must be made on the electronic document DICTATION DATE: 06/03/191557 CARDIOLOGY TEACHER: TAMIKO 06/03/191557 RPT#: [id number] DC DATE: STATUS: ADM IN [facility] [address] [place] [address] END OF REPORT
--- NOTE | 2019-06-03 16:07 | MORECARE ---
CASE MANAGEMENT DISCHARGE SUMMARY PATIENT: OSWALDO VILLEGAS UNIT: [id number] ADM DATE: 06/02/19 AGE: 44 : 79 SEX: M ROOM/BED: D.2211 AUTHOR: JEB GOMEZ PHYSICIAN: REFERRING PHYSICIAN: SAGAR CASTELLANOS MD DATE OF SERVICE: 06/03/19 Discharge Plan Patient Name: OSWALDO VILLEGAS Facility: [facility]:[place] : 1975 Planned Disposition: Home or Self Care Anticipated Discharge Date: Discharge Date: Expected LOS: Initial Reviewer: [email or web address] Initial Review Date: 06/02/2019 Generated: 06/03/19 5:07 pm Comments DCP- Discharge Planning Updated by [email or web address]: Nishi Puckett on 06/03/19 3:[address] Patient Name: OSWALDO VILLEGAS Admission Status: Urgent Accout number: [id number] Admission Date: 06-02-2019 : 1975 Admission Diagnosis: Attending: SAGAR CASTELLANOS Current LOS: 1 Anticipated DC Date: Planned Disposition: Home or Self Care Primary Insurance: MEDICAID [place] Discharge Planning Comments: CM met with patient to complete initial dc planning assessment. CM educated patient on the CM role and verbal consent given by patient to complete assessment. Patient lives at home with his mother and another woman where he stated that he is independent with his care. At discharge patient plans to get PT for his hip then continue with his mental help and feels this is a safe discharge. CM discussed availability of home health, rehab services, and medical equipment. He stated that he has a walker and shower chair. His mother would like him to go to inpatient rehab at [facility], but he is too high functioning for this. He walked 250 today. He stated that he thought his mom could take him to and from OP PT, but wanted to talk to her first. He stated that he let [facility] in [facility] where he was an inpatient psychiatric care because of his hip. Patient denied known discharge needs at this time. CM will continue to follow and will assist as needed with dc plans/needs. Hydroelectric Operator: Nishi Puckett DCPIA - Discharge Planning Initial Assessment Updated by [email or web address]: Nishi Puckett on 06/03/19 3:58 pm * Is the patient Alert and Oriented? Yes * How many steps to enter\exit or inside your home? * PCP JANELLE * Pharmacy [facility] * Preadmission Environment Home with Family * ADLs Independent * Equipment Shower Chair Walker * List name and contact numbers for known caregivers / representatives who currently or will assist patient after discharge: KALLIE ( MOTHER) [phone] * Verbal permission to speak to the caregivers and representatives has been obtained from the patient. N/A * Please name any agencies selected above. WAS AT [facility]) IN [place] FOR PSYCHIATRIC HELP DISHCARGED FROM [facility] ON 05/13/19 * Additional services required to return to the preadmission environment? Yes * Can the patient safely return to the preadmission environment? Yes * Has this patient been hospitalized within the prior 30 days at any hospital? Yes Last DP export: 06/03/19 2:59 Patient Name: OSWALDO VILLEGAS Page [id number] at 1607 All edits/amendments must be made on the electronic document DICTATION DATE: 06/03/191606 FOOD TASTER: TAMIKO 06/03/191606 RPT#: [id number] DC DATE: STATUS: ADM IN [facility] [address] [place] [address] END OF REPORT
--- NOTE | 2019-06-03 18:39 | NUR ---
RESTING IN BED. DENIES NEEDS. BED LOW. CALL LIRA AND PERSONAL ITEMS IN REACH.
--- NOTE | 2019-06-03 19:41 | NUR ---
SITTING UP IN BED. APPEARS ANXIOUS. RESP NONLABORED. RATES PAIN IN LT HIP 7. MEDICATED WITH PERCOCET AT THIS TIME. DSRG TO LT HIP IS C/D/I. SCD NOTED TO RLE. / NS @ 30 ML/HR INFUSING IN RT HAND WITHOUT DIFF. BED ALARM ON FOR PT SAFETY. SR ELEVATED X2. CL IN REACH. ALERT AND ORIENTED X4.
[2019-06-03 21:27] VITALS: BP 136/89
--- NOTE | 2019-06-03 23:40 | NUR ---
MEDICATED WITH ATIVAN PER REQUEST FOR ANXIETY AND AGITATION. STATES HE IS GOING TO GET MEAN IF HE DOESNT GET IT. CL IN REACH.
[2019-06-04 01:14] VITALS: BP 140/60
--- NOTE | 2019-06-04 04:05 | NUR ---
OBDULIOKY, ANXIOUS. TRYING TO GET OOB. MEDICATED WITH ATIVAN FOR POSSIBLE DT'S. STATES HE IS AN ALCOHOLIC. HASNT HAD A DRINK SINCE 06/01/19. CL IN REACH.
[2019-06-04 05:15] VITALS: BP 124/97
--- NOTE | 2019-06-04 05:30 | NUR ---
MEDICATED WITH PERCOCET FOR C/O PAIN IN LT HIP RATING 7. LYING IN BED. CL IN REACH. BED ALARM ON.
[2019-06-04 05:33] LABS: BASOPHILS 0.3 % (0-2); EOSINOPHILS 2.1 % (0-7); HEMATOCRIT 30.4 % (42.0-54.0); HEMOGLOBIN 10.2 g/dL (13.5-17.5); IMMATURE GRANULOCYTES 0.1 % (0-5); LYMPHOCYTES 20.8 % (15-50); MCH 33.7 pg (26.0-34.0); MCHC 33.6 g/dL (31.0-37.0); MCV 100.3 fL (80.0-100.0); MONOCYTES 8.9 % (2-11); NEUTROPHILS 67.8 % (40-80); PLATELET COUNT 72 10x3/uL (130-400); RBC 3.03 10x6/uL (4.20-6.10); RDW 12.8 % (11.5-14.5); WBC 6.8 10x3/uL (4.8-10.8)
[2019-06-04 06:14] LABS: ALKALINE PHOSPHATASE 82 U/L (46-116); ALT (SGPT) 40 U/L (10-68); BILIRUBIN - TOTAL 0.61 mg/dL (0.2-1.3); CALCIUM 7.7 mg/dL (8.5-10.1); CARBON DIOXIDE 29.1 mmol/L (21.0-32.0); CHLORIDE - SERUM 103 mmol/L (98-107); GLUCOSE 107 mg/dL (74-106); PROTEIN - SERUM 6.2 g/dL (6.4-8.2); SODIUM 139 mmol/L (136-145)
[2019-06-04 06:16] LABS: CALC OSMOLALITY 276 mosm/kg (275-300); CREATININE - SERUM 0.9 mg/dL (0.6-1.3); POTASSIUM - SERUM 3.1 mmol/L (3.5-5.1); UREA NITROGEN 9 mg/dL (7-18); eGFR NON AFRICAN AMERICAN > 90 mL/min (90-120)
--- NOTE | 2019-06-04 07:27 | NUR ---
ALERT AND ORIENTED. LUNGS CLEAR BILATERALLY. HEART SOUNDS S1 AND S2 HEARD IN ALL BERNAL. BOWEL SOUNDS ACTIVE X 4. DRSG TO LEFT HIP C/D/I. IV TO RIGHT HAND PATENT WITHOUT REDNESS. DENIES NEEDS. BED ALARM ON. CALL LIRA AND PERSONAL ITEMS IN REACH. WILL CONTINUE TO MONITOR.
[2019-06-04 09:04] VITALS: BP 142/96
--- NOTE | 2019-06-04 11:04 | NUR ---
SPOKE WITH MIKE VILLA ABOUT PATIENT DT. PATIENT UP WANTING TO GO HOME AND PULLING ON IV. VERY IRRITABLE. STATES GIVE 2MG ATIVAN STAT AND WILL PUT IN ORDER FOR LIBRIUM.
--- NOTE | 2019-06-04 11:14 | NUR ---
SPOKE WITH MIKE GASCA. STATES OK WITH MIKE VILLA ORDERS AND WILL SEE PATIENT AT LUNCH. IF MORE CALM, POSSIBLE DC. WILL CONTINUE TO MONITOR.
--- NOTE | 2019-06-04 11:55 | NUR ---
PATIENT FOUND SITTING IN CHAIR WITH IV PULLED OUT. PRESSURE APPLIED TO RIGHT HAND AND BLEEDING STOPPED. BLOOD CLEANED FROM PATIENT AND FLOOR. PATIENT CLOTHING CHANGED. MIKE VILLA ON FLOOR NOTIFIED. STATES IF CAN GET NEW IV CAN GIVE 2MG MORE ATIVAN. PATIENT REFUSING IV. LABORER ELECTROPLATING LAWRENCE IN ROOM SPEAKING WITH PATIENT. PATIENT STATES WANTS TO LEAVE. AGREED TO STAY IN ROOM UNTIL SEEN BY MIKE GASCA FOR DISCHARGE.
[2019-06-04] MEDS ORDERED: LIBRIUM25 MG PO (12:05)
[2019-06-04] MEDS ORDERED: HYDROCODON-ACE1 EA10 PO (12:17)
[2019-06-04] MEDS ORDERED: ELIQUIS2.5 MG PO (12:17)
--- NOTE | 2019-06-04 12:43 | NUR ---
ATTEMPTED TO GO OVER DISCHARGE PAPERWORK WITH PATIENT. STATES "ILL LOOK THROUGH THEM JUST GIVE TO ME SIGN." PAPERWORK SIGNED FOR DISCHARGE. PRESCRIPTIONS GIVEN TO PATIENT FOR ELIQUIS, NORCO, AND LIBRIUM. TOLD PATIENT WOULD HAVE TO WAIT IF WANTED HOME HEALTH. REFUSES TO WAIT. REFUSES HOME HEALTH. ATTEMPTED TO CHANGE DRSG TO LEFT HIP FOR DC. REFUSES DRSG CHANGE. TOLD PATIENT NEWS EDITOR WOULD BE UP WITH WC TO TAKE DOWN. REFUSES WC. PATIENT WALKED OUT OF BUILDING. NO IV.
--- NOTE | 2019-06-04 12:52 | NUR ---
SPOKE WITH MIKE GASCA TO NOTIFY PATIENT REFUSED [facility] AND HOME HEALTH. REQUESTED TO SPEAK WITH [facility] CASE MANAGEMENT. CALL TRANSFERRED TO [facility].
--- NOTE | 2019-06-04 13:12 | MORECARE ---
CASE MANAGEMENT DISCHARGE SUMMARY PATIENT: OSWALDO VILLEGAS UNIT: [id number] ADM DATE: 06/02/19 AGE: 44 : [birth year] SEX: M ROOM/BED: D.2211 AUTHOR: JEB GOMEZ PHYSICIAN: REFERRING PHYSICIAN: SAGAR CASTELLANOS MD DATE OF SERVICE: 06/04/19 Discharge Plan Patient Name: OSWALDO VILLEGAS Facility: [facility]:[place] : 1975 Planned Disposition: Home or Self Care Anticipated Discharge Date: Discharge Date: 06/04/2019 Expected LOS: Initial Reviewer: [email or web address] Initial Review Date: 06/02/2019 Generated: 06/04/19 2:12 pm Comments DCP- Discharge Planning Updated by [email or web address]: Nishi Puckett on 06/04/19 12:[address] Patient discharged without home health set up and did not wait for it to be set up. Called Aarti Hernandez APN, she stated to set him up with whomever. I sent referral to [employer], Fred with [employer] notified DCP- Discharge Planning Updated by [email or web address]: Nishi Puckett on 06/03/19 3:[address] Patient Name: OSWALDO VILLEGAS Admission Status: Urgent Accout number: [id number] Admission Date: 06-02-2019 : 1975 Admission Diagnosis: Attending: SAGAR CASTELLANOS Current LOS: 1 Anticipated DC Date: Planned Disposition: Home or Self Care Primary Insurance: MEDICAID [place] Discharge Planning Comments: CM met with patient to complete initial dc planning assessment. CM educated patient on the CM role and verbal consent given by patient to complete assessment. Patient lives at home with his mother and another woman where he stated that he is independent with his care. At discharge patient plans to get PT for his hip then continue with his mental help and feels this is a safe discharge. CM discussed availability of home health, rehab services, and medical equipment. He stated that he has a walker and shower chair. His mother would like him to go to inpatient rehab at [facility], but he is too high functioning for this. He walked 250 today. He stated that he thought his mom could take him to and from OP PT, but wanted to talk to her first. He stated that he let [facility] ([facility] in [facility] where he was an inpatient psychiatric care because of his hip. Patient denied known discharge needs at this time. CM will continue to follow and will assist as needed with dc plans/needs. Procurement Professional Logistics: Nishi Puckett DCPIA - Discharge Planning Initial Assessment Updated by [email or web address]: Nishi Puckett on 06/03/19 3:58 pm * Is the patient Alert and Oriented? Yes * How many steps to enter\exit or inside your home? * PCP JANELLE * Pharmacy [facility] * Preadmission Environment Home with Family * ADLs Independent * Equipment Shower Chair Walker * List name and contact numbers for known caregivers / representatives who currently or will assist patient after discharge: KALLIE ( MOTHER) [phone] * Verbal permission to speak to the caregivers and representatives has been obtained from the patient. N/A * Please name any agencies selected above. WAS AT [facility] ([facility] IN [place] FOR PSYCHIATRIC HELP DISHCARGED FROM [facility] ON 05/13/19 * Additional services required to return to the preadmission environment? Yes * Can the patient safely return to the preadmission environment? Yes * Has this patient been hospitalized within the prior 30 days at any hospital? Yes External Providers External Provider: [facility] Next Contact Date: Service Request Date: Service Type: Resolution: Reviewer: Comments: Last DP export: 06/03/19 3:07 Patient Name: OSWALDO VILLEGAS Page [id number] at 1312 All edits/amendments must be made on the electronic document DICTATION DATE: 06/04/19 1311 SOFTWARE ENGINEER KERNEL: TAMIKO 06/04/19 1311 RPT#: [id number] DC DATE:06/04/19 STATUS: DIS IN [facility] [address] [place] [address] END OF REPORT
--- NOTE | 2019-06-05 13:17 | MORECARE ---
CASE MANAGEMENT DISCHARGE SUMMARY PATIENT: OSWALDO VILLEGAS UNIT: [id number] ADM DATE: 06/02/19 AGE: 44 : 79 SEX: M ROOM/BED: D.2211 AUTHOR: JEB GOMEZ PHYSICIAN: REFERRING PHYSICIAN: SAGAR CASTELLANOS MD DATE OF SERVICE: 06/05/19 Discharge Plan Patient Name: OSWALDO VILLEGAS Facility: [facility]:[place] : 1975 Planned Disposition: Home or Self Care Anticipated Discharge Date: Discharge Date: 06/04/2019 Expected LOS: 0 Initial Reviewer: [email or web address] Initial Review Date: 06/02/2019 Generated: 06/05/19 2:17 pm Comments DCP- Discharge Planning Updated by [email or web address]: Nishi Puckett on 06/04/19 12:[address] Patient discharged without home health set up and did not wait for it to be set up. Called Aarti Hernandez APN, she stated to set him up with whomever. I sent referral to [facility], Fred with [employer] notified DCP- Discharge Planning Updated by [email or web address]: Nishi Puckett on 06/03/19 3:[address] Patient Name: OSWALDO VILLEGAS Admission Status: Urgent Accout number: [id number] Admission Date: 06-02-2019 : 1975 Admission Diagnosis: Attending: SAGAR CASTELLANOS Current LOS: 1 Anticipated DC Date: Planned Disposition: Home or Self Care Primary Insurance: MEDICAID [place] Discharge Planning Comments: CM met with patient to complete initial dc planning assessment. CM educated patient on the CM role and verbal consent given by patient to complete assessment. Patient lives at home with his mother and another woman where he stated that he is independent with his care. At discharge patient plans to get PT for his hip then continue with his mental help and feels this is a safe discharge. CM discussed availability of home health, rehab services, and medical equipment. He stated that he has a walker and shower chair. His mother would like him to go to inpatient rehab at [facility], but he is too high functioning for this. He walked 250 today. He stated that he thought his mom could take him to and from OP PT, but wanted to talk to her first. He stated that he let [facility] ([facility]) in [facility] where he was an inpatient psychiatric care because of his hip. Patient denied known discharge needs at this time. CM will continue to follow and will assist as needed with dc plans/needs. Produce Specialist: Nishi Puckett DCPIA - Discharge Planning Initial Assessment Updated by [email or web address]: Nishi Puckett on 06/03/19 3:58 pm * Is the patient Alert and Oriented? Yes * How many steps to enter\exit or inside your home? * PCP JANELLE * Pharmacy [facility] * Preadmission Environment Home with Family * ADLs Independent * Equipment Shower Chair Walker * List name and contact numbers for known caregivers / representatives who currently or will assist patient after discharge: KALLIE ( MOTHER) [phone] * Verbal permission to speak to the caregivers and representatives has been obtained from the patient. N/A * Please name any agencies selected above. WAS AT [facility] ([facility] IN [place] FOR PSYCHIATRIC HELP DISHCARGED FROM [facility] ON 05/13/19 * Additional services required to return to the preadmission environment? Yes * Can the patient safely return to the preadmission environment? Yes * Has this patient been hospitalized within the prior 30 days at any hospital? Yes Last DP export: 06/04/19 12:12 Patient Name: OSWALDO VILLEGAS Page [id number] at 1317 All edits/amendments must be made on the electronic document DICTATION DATE: 06/05/191316 PLASTIC TILE SETTER: TAMIKO 06/05/191316 RPT#: [id number] DC DATE:06/04/19 STATUS: DIS IN [facility] [address] [place] [address] END OF REPORT
--- NOTE | 2019-06-06 14:29 | OP ---
PATIENT NAME: OSWALDO VILLEGAS MEDICAL RECORD: [id number] :[birth year] LOCATION:D.MS [id number] ADMISSION DATE:06/02/19 SURGEON: SAGAR CASTELLANOS MD DATE OF OPERATION: 06/02/2019 PREOPERATIVE DIAGNOSIS: Unstable left hip arthroplasty. POSTOPERATIVE DIAGNOSIS: Unstable left hip arthroplasty. PROCEDURE: Revision of left total hip arthroplasty. SURGEON: Sagar Castellanos MD RELOCATION SERVICES SPECIALIST: Jonathan Castillo APN INTRAOPERATIVE COMPLICATIONS: None. SUMMARY OF PATHOLOGIC FINDINGS: The patient had had multiple posterior dislocations and had essentially torn his posterior capsule and had a pseudocapsule in the posterior aspect. Piriformis had been long since detached and retracted as were the Gemelli muscles. This resulted in sort of a fritz-capsule. At the end, this was fixed and repaired. 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 While the right hip on x-ray appears to be extremely vertical, it had caused him no problem. The left hip, which on radiographic appearance seemed to be perfectly aligned, had dislocated multiple times and I have reduced it several times. Given his long-term instability, decision was made for revision. Unfortunately, his alcoholic will persist; however, I agreed to try and keep his hip from dislocating. IMPLANTS USED: The druze MDM X3 insert, 42E, liner being also a 42E and the femoral head being a 28-mm +12 offset for stability. OPERATIVE SUMMARY IN DETAIL: After obtaining the appropriate preoperative orthopedic surgery consent as well as anesthetic consultation, evaluation and clearance, the patient was brought to the operating room and placed on the operating table in supine position. After general laryngeal mask airway was administered, the patient was placed in a right lateral decubitus position. All pressure points were well padded to include down leg peroneal pad as well as axillary roll. The patient was held firmly to the operating table using the vacuum pack and belt system. Left lower extremity and hip were then prepped and draped in routine sterile fashion. At this point, incision was made somewhat over the old incision except for the most proximal aspect. The anterolateral approach was taken for this patient. The IT band was split in line with fibers. The IT band and gluteus medius minimus were reflected anteriorly. Hip capsule was excised in its entirety. The femoral neck was then identified of the prosthesis. The hip was then dislocated and the femoral head that was placed, that being a ceramic femoral head was noted to have multiple areas of complete denudement of the ceramic finish. This was taken and sent to pathology for final evaluation. Next, the polyethylene was removed in its entirety. The stem and the hip being both well and solidly fixed led to the decision of using the dual mobility bearing with a much larger head in hopes that it would be more stable. After multiple irrigation was performed, several trials were undertaken OPERATIVE REPORT [id number] OSWALDO VILLEGAS with a dual mobility and the patient had final stability and leg length equality with a +12. The +8 was essentially stable; however, it was not as secure as I felt it should be in this revision setting. The MDM cup was put into place. The MDM head was articulated and placed on the Webber taper. The hip was reduced at this point. Finally, he was taken through a long hard rigorous range of motion without dislocation. At this point, prior to closing the anterolateral approach, the posterior capsule was repaired in its entirety using #2 Ethibond. Having completed this repair, the wound was then filled with a gram of vancomycin and a gram of tobramycin. The gluteus minimus reflection was reattached to the greater trochanter using transosseous #5 Ethibond for anatomic druze. Having completed this, the residual of the wound was closed by Jonathan Castillo APN with #2 Ethibond for reapproximation of the IT band, followed by #1 Vicryl, 2-0 Vicryl and skin xin. Sterile dressings were applied. The patient was awakened and taken to recovery room in stable condition. All final needle and sponge counts were correct. Estimated blood loss was approximately 200 mL. TRANSINT:[id number] Voice Confirmation ID: [id number] DOCUMENT ID: [id number] EMANUEL SWANSON, SAGAR COCHRAN at 1429 CC: [id number] DICTATION DATE: 06/06/19 1018 COLLATERAL ANALYST: 06/06/19 1135 DIS IN 06/04/19 [id number] [place] [address]
== END 2019-06-04 12:55 | disposition home health service (06) | DRG 467 ==
LOC: D.SDCHOLD 05-28 10:00 → D.MS 06-02 08:59 → D.SDCHOLD 06-02 08:59 → D.MS 06-02 16:36
PROVIDERS: Family Medicine; ADMIT Orthopaedic Surgery; ATTEND Orthopaedic Surgery
PROC: 0SPS0JZ Removal of Synthetic Substitute from Left Hip Joint, Femoral Surface, Open Approach (ICD-10-PCS; 2019-06-02)
PROC: 0SPB09Z Removal of Liner from Left Hip Joint, Open Approach (ICD-10-PCS; 2019-06-02)
PROC: 0SUE09Z Supplement Left Hip Joint, Acetabular Surface with Liner, Open Approach (ICD-10-PCS; 2019-06-02)
PROC: 0SRS0J9 Replacement of Left Hip Joint, Femoral Surface with Synthetic Substitute, Cemented, Open Approach (ICD-10-PCS; principal; 2019-06-02 10:45)
DX: T84.89XA Other specified complication of internal orthopedic prosthetic devices, implants and grafts, initial encounter (principal); D62 Acute posthemorrhagic anemia; F17.203 Nicotine dependence unspecified, with withdrawal; I10 Essential (primary) hypertension; M19.90 Unspecified osteoarthritis, unspecified site; M54.9 Dorsalgia, unspecified

== ENCOUNTER 2019-05-09 23:32 | Inpatient (IN) | payer MEDICAID ==
[~2019-05-09] VITALS: Ht 182.9 cm; Wt 79.5 kg
[2019-05-10] VITALS (7 sets, daily range): BP systolic 121–175; BP diastolic 71–92; Ht 182.9 cm; Wt 79.5 kg
[2019-05-10 00:07] LABS: HEMATOCRIT 37.5 % (42.0-54.0); HEMOGLOBIN 13.3 g/dL (13.5-17.5); LYMPHOCYTES 18.6 % (15-50); MCH 34.5 pg (26.0-34.0); MCHC 35.5 g/dL (31.0-37.0); MCV 97.4 fL (80.0-100.0); MEAN PLATELET VOLUME 8.8 fL (7.4-10.4); NEUTROPHILS 72.5 % (40-80); PLATELET COUNT 181 10x3/uL (130-400); RBC 3.85 10x6/uL (4.20-6.10); RDW 12.8 % (11.5-14.5); WBC 10.1 10x3/uL (4.8-10.8)
[2019-05-10 00:30] LABS: ALBUMIN 4.3 g/dL (3.4-5.0); ALKALINE PHOSPHATASE 93 U/L (46-116); ALT (SGPT) 34 U/L (10-68); BILIRUBIN - TOTAL 1.12 mg/dL (0.2-1.3); CALC OSMOLALITY 281 mosm/kg (275-300); CALCIUM 8.9 mg/dL (8.5-10.1); CARBON DIOXIDE 22.6 mmol/L (21.0-32.0); CHLORIDE - SERUM 101 mmol/L (98-107); CREATININE - SERUM 1.2 mg/dL (0.6-1.3); GLUCOSE 87 mg/dL (74-106); POTASSIUM - SERUM 3.1 mmol/L (3.5-5.1); PROTEIN - SERUM 8.2 g/dL (6.4-8.2); SODIUM 140 mmol/L (136-145); UREA NITROGEN 23 mg/dL (7-18); eGFR NON AFRICAN AMERICAN 71 mL/min (90-120)
[2019-05-10 00:48] LABS: CREATINE KINASE 580 UL (21-232); MAGNESIUM - SERUM 1.3 mg/dL (1.8-2.4)
[2019-05-10 00:49] LABS: CKMB 4.7 U/L (0.0-3.6)
--- NOTE | 2019-05-10 02:59 | NUR ---
MOTHER CONTACT INFORMATION: [phone]
--- NOTE | 2019-05-10 03:20 | NUR ---
PT ARRIVED TO THE FLOOR FROM ER. PT EXHIBITING AUDITORY AND VISUAL HALLUCINATIONS. PT STATES HE SEES FACES AND COWBOYS. PT IS A POOR HISTORIAN AT THIS TIME AND IS NOT ANSWERING QUESTIONS APPROPRIATELY. STATES HE LASTED USED METH ON SUNDAY. PT IS CONSTANTLY MOVING ALL EXTREMITIES AND TONGUE. UNABLE TO REDIRECT. PT PULLED IV OUT OF LEFT AC AND WAS CHEWING ON CATHETER. PROVIDED ICE-WATER PER REQUEST AND PT STARTED CHEWING ON LID AND THEN STRAW. NOTIFIED SECONDARY EDUCATION PROFESSOR ABOUT SITUATUAION. WILL NOTIFY FAMILY AND ATTENDING.
--- NOTE | 2019-05-10 04:00 | NUR ---
PTS MOTHER STATED THAT SHE WILL COME UP HERE TO HELP WATCH HIM. NOTIFED BILLY MCKEON ABOUT PT AND UNABLE TO MAINTAIN IV ACCESS. RECEIVED ORDER FOR ATIVAN 1MG PO Q6H PRN.
--- NOTE | 2019-05-10 05:42 | NUR ---
PTS MOTHER IN ROOM. PT STILL FLAILING EXTREMITIES AND UNALBE TO STAY STILL. ESTABLISHED IV ACCESS LEFT HAND X2 ATTEMPT. PT TOLETATED WELL. PT STILL UNABLE TO SIT STILL AND REDIRECT WITH MOTHER AND NURSING STAFF PRESENT AT BEDSIDE. PT CONTINUES TO BE UNCOOPERATIVE WITH TX.
--- NOTE | 2019-05-10 07:00 | NUR ---
RECEIVED REPORT. ASSUMED CARE OF PATIENT. PATIENT EXHIBITING BEHAVIORS, UNCONTROLLED, AND PATIENTS MOM AT BEDSIDE.
--- NOTE | 2019-05-10 07:06 | NUR ---
WALKING BY ROOM, AND NOTICED PT PULLED IV OUT AGAIN
--- NOTE | 2019-05-10 07:28 | NUR ---
MEDICATED WITH HALDOL AT THIS TIME. PATIENT BOUNCING IN BED,CONTINUING TO TRY AND GET OOB, PATIENT UP ON HIS KNEES PULLING AT ELECTRICAL CORD AND ALSO TRYING TO CHEW ON ELECTRICAL CORDS THAT ARE CONNECTED FROM THE BACK OF THE BED TO THE HEU. PATIENT MOTHER AT BEDSIDE AND UNABLE TO CONTROL PATIENT. 4 NURSING STAFF MEMBERS PRESENT DURING INJECTION AT THIS TIME. PATIENT HAVING AUDITORY AND VISUAL HALLUNCINATIONS, RAPID MOVEMENT OF MOUTH, SMACKING AND CLIPPING TONGUE AND ALSO MAKING BLOWING SOUNDS. NURSING CONTINUES TO BE AT BEDSIDE.
--- NOTE | 2019-05-10 07:41 | NUR ---
PATIENT IS BECOMMING MORE VERBALLY AGGRESSIVE AFTER IM HALDOL. CALLED DEPUTY JUVENILE OFFICER PRIOR AT 07 TO REPORT PATIENT ACTIONS AND THAT THIS CIGARETTE AND FILTER CHIEF INSPECTOR UNABLE TO CONTROL PATIENT AND PATIENTS MOTHER IS AT BEDSIDE AND UNABLE TO CONTROL HIM. THIS IS NOT THE APPROPRIATE SETTING FOR PATIENT AND NEEDS ONE ON ONE STAFF MEMBER. ASKED FOR SUGGESTIONS/HELP FROM DEPUTY JUVENILE OFFICER AND WAS INSTRUCTED TO CALL MD INSTEAD OF PLACEMENT SECRETARY AND GET ORDER FOR IM MEDICATION. HALDOL ORDER WAS RECEIVED AND ADMINISTERED. PATIENT IS NOW BECOMMING MORE VERBALLY AGGRESSIVE AFTER HALDOL INJECTION, USING PROPANITY AND IS STILL HYPERACTIVE. PATIENT CONTINUES TO SCOOT HIMSELF ALL OVER BED, LITERALLY FLIPPING HIS BODY FROM EACH LATERAL SIDE LYING POSITION TO HIS BELLY AND THEN TO HIS BACK. PATIENT MOTHER CONTINUES AT BEDSIDE BUT IS UNABLE TO HELP PATIENT MUCH HIS BODY SIZE IS 2X THE SIZE OF HER. CHARGE NURSE IS AWARE OF PATIENT BEHAVIOR AND WAS AT BEDSIDE WHEN IM HALDOL WAS ADMINISTERED AND IS TRYING TO GET PATIENT TRANSFERRED TO ICU TO PROVIDE MORE SAFE, 1 ON 1, ENVIRONMENT FOR PATIENT.
[2019-05-10 07:54] LABS: APPEARANCE CLEAR (CLEAR); BILIRUBIN NEGATIVE (NEGATIVE); COLOR YELLOW (YELLOW); GLUCOSE NEGATIVE (NEGATIVE); KETONE LARGE mg/dL (NEGATIVE); NITRITE NEGATIVE (NEGATIVE); PROTEIN NEGATIVE (NEGATIVE); UROBILINOGEN NORMAL (NORMAL)
--- NOTE | 2019-05-10 08:00 | NUR ---
PATIENT WAS WITH EYES CLOSED RESTING AND LAB AT BEDSIDE AND AWAKEN PATIENT FOR LAB DRAW. PATIENT NOW WITH EYES OPEN, TOSSING, LAB TRYING TO GET BLOOD. PATIENTS MOTHER REMAINS AT BEDSIDE.
[2019-05-10 08:03] LABS: UDS - AMPHET POSITIVE QUAL (NEGATIVE); UDS - BARB NEGATIVE QUAL (NEGATIVE); UDS - BENZO NEGATIVE QUAL (NEGATIVE); UDS - COCAINE NEGATIVE QUAL (NEGATIVE); UDS - OPIATE NEGATIVE QUAL (NEGATIVE); UDS - PCP NEGATIVE QUAL (NEGATIVE); UDS - THC POSITIVE QUAL (NEGATIVE)
[2019-05-10 08:25] LABS: BASOPHILS 0.2 % (0-2); EOSINOPHILS 0.3 % (0-7); IMMATURE GRANULOCYTES 0.2 % (0-5); MCH 34.3 pg (26.0-34.0); MCHC 35.3 g/dL (31.0-37.0); MCV 97.1 fL (80.0-100.0); MEAN PLATELET VOLUME 9.8 fL (7.4-10.4); MONOCYTES 10.5 % (2-11); NEUTROPHILS 67.8 % (40-80); RDW 13.1 % (11.5-14.5); WBC 11.7 10x3/uL (4.8-10.8)
[2019-05-10 08:26] LABS: PLATELET COUNT 142 10x3/uL (130-400)
[2019-05-10 08:42] LABS: ALBUMIN 3.7 g/dL (3.4-5.0); ALKALINE PHOSPHATASE 72 U/L (46-116); ALT (SGPT) 31 U/L (10-68); BILIRUBIN - TOTAL 1.14 mg/dL (0.2-1.3); CALC OSMOLALITY 282 mosm/kg (275-300); CALCIUM 8.5 mg/dL (8.5-10.1); CARBON DIOXIDE 18.2 mmol/L (21.0-32.0); CHLORIDE - SERUM 105 mmol/L (98-107); CREATININE - SERUM 1.1 mg/dL (0.6-1.3); GLUCOSE 77 mg/dL (74-106); MAGNESIUM - SERUM 1.5 mg/dL (1.8-2.4); POTASSIUM - SERUM 3.7 mmol/L (3.5-5.1); PROTEIN - SERUM 7.2 g/dL (6.4-8.2); SODIUM 141 mmol/L (136-145); UREA NITROGEN 21 mg/dL (7-18); eGFR NON AFRICAN AMERICAN 78 mL/min (90-120)
--- NOTE | 2019-05-10 09:00 | NUR ---
REMAINS WITH EYES CLOSED, EASILY AROUSED. MALE VISITOR AT BEDSIDE AND PATIENTS MOM HAS LEFT FOR A FEW MINUTES.
--- NOTE | 2019-05-10 09:50 | NUR ---
SPOKE WITH FURNITURE PAINTER SHERON PATIENTS MOTHER WANTING TO KNOW IF THERE IS OPPORTUNITY THAT PATIENT MAY BE TRANSFERRED TO ICU. EXPLAINED TO SHERON THAT AT THIS TIME PATIENT IS SLEEPING WITH EYES CLOSED AND APPEARS LIKE HAVING A BAD DREAM EVIDENCED BY SLIGHT TOSSING AND TALKING IN SLEEP. EXPLAINED TO SHERON THAT IF PATIENT AWAKENS IN SAFE STATE THAT HE WAS IN WHILE RECEVINING REPORT THIS AM THAT THIS DISABILITY COUNSELOR WOULD NOT BE ABLE TO TAKE CARE OF HIM WITHOUT SOME TYPE OF MEDICATION WE ONLY RECEIVED A ONE TIME DOSE OF HALDOL. FURNITURE PAINTER UPSET THAT THIS DISABILITY COUNSELOR STATED THAT "WOULD NOT BE ABLE TO CARE FOR PATIENT" WAS USED IN FRONT OF THE PATIENTS MOM SHE WAS STANDING AT NURSES STATION DURING CONVERSATION WITH FURNITURE PAINTER AND THIS DISABILITY COUNSELOR. THIS DISABILITY COUNSELOR EXPLAINED IS IT NOT THAT I WOULD BE REFUSING CARE, THIS DISABILITY COUNSELOR CAN NOT PHYSICALLY CARE FOR PATIENT WITH BEHAVIORS HE WAS DISPLAYING THIS MORNING AND THE PATIENTS MOTHER AGREES THAT IT IS NOT SAFE, IT TAKES MULTIPLE STAFF MEMBERS TO CONTROL THIS PATIENT. THIS DISABILITY COUNSELOR SAID NOTHING OUT OF CONTEXT AND STILL EXPRESSED THE FACT THAT THIS IS NOT THE APPROPRIATE SETTING FOR THIS PATIENT HE NEEDS TRAINED ONE ON ONE STAFF.
--- NOTE | 2019-05-10 10:17 | NUR ---
NO FAMILY CURRENTLY AT BEDSIDE. PATIENT WITH EYES CLOSED, RESTING AT THIS TIME. NO DISTRESS. FREQUENT VISUAL CHECKS PROVIDED.
--- NOTE | 2019-05-10 10:28 | NUR ---
THIS APARTMENT MAINTENANCE TECHNICIAN UNABLE TO KEEP IV IN PATIENT. ORDERS HAVE NOW BEEN RECIEVED FOR TELEMETRY AND SCDS. PATIENT STARTS THRASHING WHEN HE IS AWAKENED AND NO FAMILY AT BEDSIDE AT THIS TIME. WILL ATTEMPT TO APPLY TELEMETRY AND SCDS WHEN PATIENTS MOTHER RETURNS TO BEDSIDE. PATIENT HAS BEEN AWAKEN MULTIPLE TIMES SINCE RECEIVING HALDOL INJECTION THIS AM FOR VARIOUS REASONS AND THIS APARTMENT MAINTENANCE TECHNICIAN IS TRYING TO LET THE PATIENT REST, HOPING HIS BEHAVIORS WILL SUBSIT SLIGHTLY WHEN HE DOES WAKE UP. RESP EVEN AND UNLABORED. NO DISTRESS.
--- NOTE | 2019-05-10 11:17 | NUR ---
PATIENT WITH EYES CLOSED. PATIENT MOM AT BEDSIDE AND REQUESTED PATIENT NOT BE AWAKENED FOR PROTONIX AT THIS TIME.
[2019-05-10 11:30] LABS: APTT 29.8 SECONDS (22.8-39.4); INR 1.05 (0.85-1.17); PROTIME 13.2 SECONDS (11.6-15.0)
--- NOTE | 2019-05-10 14:44 | NUR ---
PATIENT RESTING WITH EYES CLOSED, EASILY AROUSED. MOTHER REPORTS PATIENT IS MORE ALERT AND ABLE TO FOLLOW COMMANDS. PATIENT AROUSES TO VERBAL STIMULUS BUT IS STILL JERKY AND SHAKEY BUT NOT TRYING TO GET OUT OF BED, NO RAPID FLOPPING HIS BODY, OR CLICKING HIS TONGUE. MENTAL IMPROVEMENT IS NOTED AT THIS TIME BUT NOT 100% AT BASELINE PER HIS MOTHER BUT GREAT IMPROVEMENT FROM THIS AM.
--- NOTE | 2019-05-10 15:28 | NUR ---
SPOKE WITH BILLY ABOUT GETTING EKGs. PATIENT IS VERY JITTERY AND JERKY WHEN HE IS AWAKE AND THE EKGs ARE GOING TO HAVE A LOT OF ARTIFACT AND PROBABLY NOT ACCURATE. BILLY STATED THE EKGs ARE ON HER ORDER SET, IGNORE THE EKGs THEY ARE MONITORING AND CYCLING THE CARDIAC ENZYMES.
--- NOTE | 2019-05-10 16:19 | NUR ---
AWAKE AND SITTING TO SIDE OF BED. CONSUMED LATE LUNCH. PATIENT HAVING WITHDRAWL SYMPTOMS, PACING, WRINGING OF HANDS, JITTERY, SHAKEY. ATIVAN ADMINISTERED AT THIS TIME PO FOR WITHDRAWL SYMPTOMS. LYING IN BED WITH ATTENTION TOWARD THE TELEVISION AT THIS TIME. CALL LIGHT WITHIN REACH. NO DISTRESS.
[2019-05-10 16:31] LABS: CKMB 4.8 U/L (0.0-3.6); CREATINE KINASE 734 UL (21-232); TROPONIN-I < 0.017 ng/mL (0.000-0.060)
--- NOTE | 2019-05-10 17:21 | NUR ---
22 GAUGE IV PLACED TO LEFT WRIST X 1 STICK. GOOD BLOOD RETURN, EASY FLUSH. TAPED, DATED AND SECURED. TOLERATED IV PLACEMENT WELL. PATIENT CONSUMING PM MEAL. NO DISTRESS. CALL LIGHT WITHIN REACH.
--- NOTE | 2019-05-10 17:58 | NUR ---
IV FLUIDS INFUSING ORDERED AT THIS TIME. PATIENT RESTING WELL WITH EYES CLOSED. FRESH ICE WATER PROVIDED UPON REQUEST. NO DISTRESS. CALL LIGHT WITHIN REACH.
--- NOTE | 2019-05-10 19:39 | MORECARE ---
CASE MANAGEMENT DISCHARGE SUMMARY PATIENT: OSWALDO VILLEGAS UNIT: [id number] ADM DATE: 05/10/19 AGE: 44 : 79 SEX: M ROOM/BED: D.2102 AUTHOR: JEB GOMEZ PHYSICIAN: REFERRING PHYSICIAN: JEANA OKEEFE MD DATE OF SERVICE: 05/10/19 Discharge Plan Patient Name: OSWALDO VILLEGAS [facility] [facility] 1975 Planned Disposition: Anticipated Discharge Date: Discharge Date: Expected LOS: Initial Reviewer: [email or web address] Initial Review Date: 05/10/2019 Generated: 05/10/19 8:38 pm Comments DCP- Discharge Planning Updated by [email or web address]: Vonda Ruiz on 05/10/19 6:[address] CM met with patient regarding order for Psychiatric transfer. CM met with patient briefly, and patient states he is in agreement to same. Polite, states "have a happy life" when I am leaving the room . Patient is calm and cooperative. Patient denies SI/HI. Patient states he is his own POA. @1905 CM faxed patient chart to [facility] #[phone], phone #[phone]. Also, spoke with [facility] to give brief report of same. Provided phone number #[phone] for contact. Pending psych evaluation at this time. Vonda Ruiz RN Patient Name: OSWALDO VILLEGAS Page [id number] at 1939 All edits/amendments must be made on the electronic document DICTATION DATE: 05/10/191937 SUPERVISOR WOUND: TAMIKO 05/10/191937 RPT#: [id number] DC DATE: STATUS: ADM IN [facility] [address] [facility] [place] [address] END OF REPORT
--- NOTE | 2019-05-10 19:43 | NUR ---
RECIEVED BEDSIDE REPORT. LAYING IN BED WITH EYES OPEN AND TV ON. ALERT AND ORIENTED. UP AD ALLISON TO B/R. IV TO LEFT POSTERIOR FA WITH NS WITH POTASSIUM AND MAG ADDED AT 125HR. NO RENESS OR SWELLING TO SITE. DENIES ANY PAIN OR NEEDS AT THIS TIME.
[2019-05-10 22:26] LABS: CKMB 3.1 U/L (0.0-3.6); CREATINE KINASE 571 UL (21-232); TROPONIN-I < 0.017 ng/mL (0.000-0.060)
[2019-05-11] VITALS: BP 131/74
[2019-05-11 03:42] LABS: BASOPHILS 0.2 % (0-2); EOSINOPHILS 3.2 % (0-7); HEMATOCRIT 33.1 % (42.0-54.0); HEMOGLOBIN 11.5 g/dL (13.5-17.5); LYMPHOCYTES 41.3 % (15-50); MCH 33.9 pg (26.0-34.0); MCHC 34.7 g/dL (31.0-37.0); MCV 97.6 fL (80.0-100.0); MEAN PLATELET VOLUME 9.4 fL (7.4-10.4); MONOCYTES 15.5 % (2-11); NEUTROPHILS 39.8 % (40-80); PLATELET COUNT 159 10x3/uL (130-400); RBC 3.39 10x6/uL (4.20-6.10); RDW 13.1 % (11.5-14.5); WBC 4.7 10x3/uL (4.8-10.8)
[2019-05-11 03:45] LABS: ALBUMIN 2.9 g/dL (3.4-5.0); ALKALINE PHOSPHATASE 62 U/L (46-116); ALT (SGPT) 25 U/L (10-68); BILIRUBIN - TOTAL 0.57 mg/dL (0.2-1.3); CALCIUM 7.3 mg/dL (8.5-10.1); CHLORIDE - SERUM 111 mmol/L (98-107); CKMB 1.9 U/L (0.0-3.6); CREATINE KINASE 462 UL (21-232); GLUCOSE 77 mg/dL (74-106); PROTEIN - SERUM 5.9 g/dL (6.4-8.2); SODIUM 141 mmol/L (136-145); TROPONIN-I < 0.017 ng/mL (0.000-0.060)
[2019-05-11 03:56] LABS: CALC OSMOLALITY 279 mosm/kg (275-300); CARBON DIOXIDE 22.9 mmol/L (21.0-32.0); CREATININE - SERUM 0.6 mg/dL (0.6-1.3); POTASSIUM - SERUM 6.7 mmol/L (3.5-5.1); UREA NITROGEN 12 mg/dL (7-18); eGFR NON AFRICAN AMERICAN > 90 mL/min (90-120)
[2019-05-11 04:00] VITALS: BP 141/94
[2019-05-11 04:49] LABS: MAGNESIUM - SERUM 2.4 mg/dL (1.8-2.4); POTASSIUM - SERUM 4.4 mmol/L (3.5-5.1)
--- NOTE | 2019-05-11 07:00 | NUR ---
RECEIVED REPORT. ASSUMED CARE OF PATIENT. PATIENT RESTING IN BED WITH EYES OPEN. RESP EVEN AND UNLABORED. DENIES NEEDS. STATES HE FEELS BETTER THIS MORNING. NO DISTRESS. CALL LIGHT WITHIN REACH.
[2019-05-11 08:00] VITALS: BP 143/97
--- NOTE | 2019-05-11 08:48 | NUR ---
NEW ORDER RECEIVED TO RESTART HOME MED [facility] DUE TO HYPERTENSION. SPOKE WITH PATIENTS MOM AND SHE WILL BE UP HERE LATER TO SEE PATIENT AND THAT SHE TOOK HIS CELLPHONE HOME WITH HER LAST NIGHT IF HE STARTS LOOKING FOR IT. THANKED KALLIE FOR LETTING ME KNOW.
--- NOTE | 2019-05-11 09:25 | NUR ---
MEDICATED FOR WITHDRAWLS, DTs. PATIENT WITH JERKY TREMORS. NO DISTRESS. RESTING IN BED. EXTRA BLANKET PROVIDED.
--- NOTE | 2019-05-11 09:41 | NUR ---
ALY FROM THE TRANSFER CENTER CALLED AND STATED THEY HAVE BEEN WORKING ON PSYCH PLACEMENT FOR THIS PATIENT X 2 DAYS AND HAVE CALLED 18 DIFFERENT FACILITIES. ALY CALLED TO SEE IF ANY OF THE FACILITIES HAS CALLED TO ACCEPT OF REJECT PATIENT. PER THIS WRITERS KNOWLEDGE, NO FACILITIES HAVE CALLED AND ACCEPTED OR REJECTED PATIENT. THIS ENVIRONMENTAL STUDIES FACULTY MEMBER WAS UNAWARE THAT THE TRANSFER CENTER WAS WORKING ON PLACEMENT FOR THE PATIENT. THANKED ALY FOR CALLING.
[2019-05-11 10:24] LABS: % SATURATION 15 % (15-55); IRON 36 ug/dl (35-150); TOTAL IRON BIND CAPACITY 235 ug/dl (260-445); UNSAT IRON BIND CAPACITY 199 ug/dl (150-375)
--- NOTE | 2019-05-11 11:11 | NUR ---
RECEIVED CALL FROM EVITA SERRA RN AT [facility] WHO REPORTS THEY DO NOT HAVE ANY PSYCH BEDS AVAILABLE SO THE TRANSFER CENTER WILL CONTINUE TO HAVE TO LOOK FOR PLACEMENT FOR THIS PATIENT. THANKED EVITA FOR CALLING.
[2019-05-11 13:47] VITALS: BP 148/92
--- NOTE | 2019-05-11 15:24 | NUR ---
RESTING PEACEFULLY, RESP EVEN AND UNLABORED.NO DISTRESS. CALL LIGHT WITHIN REACH.
[2019-05-11 17:13] VITALS: BP 150/97
--- NOTE | 2019-05-11 17:19 | NUR ---
MEDICATED FOR WITHDRAWL SYMPTOMS AT THIS TIME. NO DISTRESS. 100% OF PM MEAL CONSUMED. CALL LIGHT WITHIN REACH.
--- NOTE | 2019-05-11 19:07 | NUR ---
RECIEVED BEDSIDE REPORT. ALERT AND ORIENTED X4. LAYING IN BED WITH EYES CLOSED AND LIGHTS OFF. OPENS EYES SPONTANEOUSLY WHEN TURNING LIGHT ON. IV TO LEFT FA WITH NS INFUSING AT 125CC/HR. NO REDNESS OR SWELLING TO SITE.UP AD ALLISON. DENIES ANY NEEDS AT THIS THIS TIME. WILL CONT. POC.
[2019-05-11 20:00] VITALS: BP 155/89
--- NOTE | 2019-05-11 20:47 | NUR ---
TRANSFER CENER CALLED REGARDING PSYCH TRANSFER. CALLED FABRIC COATING SUPERVISOR AND STATED SHE WAS UNAWARE OF ANY TRANSFER. NO ORDERS TO TRANSFER TO PSYCH.. WILL CONTACT OR HAVE SOMEONE CONTACT TRANSFER CENTER TO INFORM THEM.
--- NOTE | 2019-05-11 20:57 | NUR ---
CALLED TRANSFER CENTER AT 2151. SPOKE WITH ALY. EXPLAINED THE SITUATION WITH THE ORDER AND NEED TO HAVE TRANSFER PAPERWORK SIGNED BY THE PHYSICIAN. ALY STATED THERE WERE NO BEDS ANYWAY AND HE WILL MPUT THIS ON HOLD TIL TOMORROW. EXPLAINED THAT CASE MANAGEMENT WOULD PROBABLY NOTIFY HIM WHEN ORDERS WERE PLACED.
--- NOTE | 2019-05-11 21:02 | NUR ---
AWAITING PSYCH EVAL PER CASE MANAGEMENTS NOTES.
[2019-05-12] VITALS (7 sets, daily range): BP systolic 144–167; BP diastolic 79–113
[2019-05-12 05:04] LABS: BASOPHILS 0.2 % (0-2); EOSINOPHILS 2.4 % (0-7); HEMATOCRIT 32.6 % (42.0-54.0); HEMOGLOBIN 11.4 g/dL (13.5-17.5); IMMATURE GRANULOCYTES 0.2 % (0-5); MCH 33.8 pg (26.0-34.0); MCV 96.7 fL (80.0-100.0); MEAN PLATELET VOLUME 9.3 fL (7.4-10.4); MONOCYTES 10.4 % (2-11); NEUTROPHILS 45.8 % (40-80); PLATELET COUNT 171 10x3/uL (130-400); RBC 3.37 10x6/uL (4.20-6.10)
[2019-05-12 05:55] LABS: ALKALINE PHOSPHATASE 62 U/L (46-116); ALT (SGPT) 31 U/L (10-68); BILIRUBIN - TOTAL 0.39 mg/dL (0.2-1.3); CALC OSMOLALITY 280 mosm/kg (275-300); CALCIUM 8.3 mg/dL (8.5-10.1); CARBON DIOXIDE 24.6 mmol/L (21.0-32.0); CHLORIDE - SERUM 107 mmol/L (98-107); CREATINE KINASE 353 UL (21-232); CREATININE - SERUM 0.6 mg/dL (0.6-1.3); GLUCOSE 92 mg/dL (74-106); MAGNESIUM - SERUM 1.5 mg/dL (1.8-2.4); POTASSIUM - SERUM 3.3 mmol/L (3.5-5.1); PROTEIN - SERUM 6.4 g/dL (6.4-8.2); SODIUM 142 mmol/L (136-145); UREA NITROGEN 6 mg/dL (7-18); eGFR NON AFRICAN AMERICAN > 90 mL/min (90-120)
[2019-05-12 05:56] LABS: CKMB 1.1 U/L (0.0-3.6)
--- NOTE | 2019-05-12 07:30 | MORECARE ---
CASE MANAGEMENT DISCHARGE SUMMARY PATIENT: OSWALDO VILLEGAS UNIT: [id number] ADM DATE: 05/10/19 AGE: 44 : 79 SEX: M ROOM/BED: D.2102 AUTHOR: JEB GOEMZ PHYSICIAN: REFERRING PHYSICIAN: JEANA OKEEFE MD DATE OF SERVICE: 05/12/19 Discharge Plan Patient Name: OSWALDO VILLEGAS [facility] : 1975 Planned Disposition: Psych facility Anticipated Discharge Date: Discharge Date: Expected LOS: Initial Reviewer: [email or web address] Initial Review Date: 05/10/2019 Generated: 05/12/19 8:30 am DCP- Discharge Planning Updated by [email or web address]: Vonda Ruiz on 05/10/19 6:[address] CM met with patient regarding order for Psychiatric transfer. CM met with patient briefly, and patient states he is in agreement to same. Polite, states "have a happy life" when I am leaving the room . Patient is calm and cooperative. Patient denies SI/HI. Patient states he is his own POA. @1905 CM faxed patient chart to [facility] #[phone], phone #[phone]. Also, spoke with Beverley [facility] to give brief report of same. Provided phone number #[phone] for contact. Pending psych evaluation at this time. Vonda Ruiz RN Last DP export: 05/10/19 6:39 p Patient Name: OSWALDO VILLEGAS Page [id number] at 0730 All edits/amendments must be made on the electronic document DICTATION DATE: 05/12/19729 MORPHOLOGY TEACHER: TAMIKO 05/12/19729 RPT#: [id number] DC DATE: STATUS: ADM IN [facility] [address] [place] [address] END OF REPORT
--- NOTE | 2019-05-12 07:45 | NUR ---
REPORT RECIEVED. PT HAS A L FA PIV INFUSING NS @ 125. RR EVEN AND UNLABORED. NO DISTRESS NOTED. PT IS VERY JITTERY. HES A&0. BED LOCKED AND IN LOWEST POSITION, CALL LIGHT WITHIN REACH. WILL CTM
--- NOTE | 2019-05-12 12:52 | NUR ---
I have reviewed this patient and I concur with the Shift Assessment completed by the Licensed Practical Nurse today this shift.
--- NOTE | 2019-05-12 20:00 | NUR ---
EYES CLOSED RESP UNLABORED, IV INFUSING WITHOUT DIFFICULTY, AROUSED EASILY DENIES PAIN, SEE SHIFT ASSESSMENT, CALL LIGHT IN REACH
--- NOTE | 2019-05-12 23:50 | NUR ---
IV OUT PER PT, ATEMPTED X 4 BY 2 NURSES WITHOUT SUCCESS, WILL TRY LATER, RESTING AT THIS TIME
[2019-05-13 04:00] VITALS: BP 150/105
[2019-05-13 06:32] LABS: BASOPHILS 0.5 % (0-2); EOSINOPHILS 2.2 % (0-7); HEMATOCRIT 34.2 % (42.0-54.0); IMMATURE GRANULOCYTES 0.2 % (0-5); LYMPHOCYTES 34.3 % (15-50); MCH 33.6 pg (26.0-34.0); MCHC 35.1 g/dL (31.0-37.0); MCV 95.8 fL (80.0-100.0); MEAN PLATELET VOLUME 9.4 fL (7.4-10.4); MONOCYTES 12.6 % (2-11); NEUTROPHILS 50.2 % (40-80); RBC 3.57 10x6/uL (4.20-6.10)
[2019-05-13 06:37] LABS: PLATELET COUNT 218 10x3/uL (130-400); WBC 6.4 10x3/uL (4.8-10.8)
[2019-05-13 07:17] LABS: ALBUMIN 3.4 g/dL (3.4-5.0); ALKALINE PHOSPHATASE 69 U/L (46-116); ALT (SGPT) 34 U/L (10-68); CALCIUM 9.5 mg/dL (8.5-10.1); CARBON DIOXIDE 25.8 mmol/L (21.0-32.0); CHLORIDE - SERUM 104 mmol/L (98-107); GLUCOSE 129 mg/dL (74-106); MAGNESIUM - SERUM 1.5 mg/dL (1.8-2.4); PROTEIN - SERUM 7.2 g/dL (6.4-8.2); SODIUM 141 mmol/L (136-145)
[2019-05-13 07:20] LABS: CALC OSMOLALITY 281 mosm/kg (275-300); CREATINE KINASE 242 UL (21-232); CREATININE - SERUM 0.8 mg/dL (0.6-1.3); POTASSIUM - SERUM 3.1 mmol/L (3.5-5.1); UREA NITROGEN 9 mg/dL (7-18); eGFR NON AFRICAN AMERICAN > 90 mL/min (90-120)
[2019-05-13 07:21] LABS: CKMB 0.7 U/L (0.0-3.6)
--- NOTE | 2019-05-13 07:30 | NUR ---
A/A/OX4. DENIES ANY NEEDS AT THIS TIME AND NO REQUESTS VOICED. PLEASANT AND CONVERSANT. ASSESSMENT COMPLETED AND WILL CONTINUE POC.
--- NOTE | 2019-05-13 07:33 | MORECARE ---
CASE MANAGEMENT DISCHARGE SUMMARY PATIENT: OSWALDO VILLEGAS UNIT: [id number] ADM DATE: 05/10/19 AGE: 44 : 79 SEX: M ROOM/BED: D.2102 AUTHOR: JEB GOMEZ PHYSICIAN: REFERRING PHYSICIAN: JEANA OKEEFE MD DATE OF SERVICE: 05/13/19 Discharge Plan Patient Name: OSWALDO VILLEGAS [facility] [facility] 1975 Planned Disposition: Psych facility Anticipated Discharge Date: Discharge Date: Expected LOS: Initial Reviewer: [email or web address] Initial Review Date: 05/10/2019 Generated: 05/13/19 8:33 am DCP- Discharge Planning Updated by [email or web address]: Vonda Ruiz on 05/10/19 6:[address] CM met with patient regarding order for Psychiatric transfer. CM met with patient briefly, and patient states he is in agreement to same. Polite, states "have a happy life" when I am leaving the room . Patient is calm and cooperative. Patient denies SI/HI. Patient states he is his own POA. @1905 CM faxed patient chart to [facility] #[phone], phone #[phone]. Also, spoke with Beverley [facility] to give brief report of same. Provided phone number #[phone] for contact. Pending psych evaluation at this time. Vonda Ruiz RN External Providers External Provider: [facility] Next Contact Date: 05/13/2019 Service Request Date: Service Type: Resolution: Reviewer: Comments: Last DP export: 05/12/19 6:30 a Patient Name: OSWALDO VILLEGAS Page [id number] at 0733 All edits/amendments must be made on the electronic document DICTATION DATE: 05/13/19732 SHOT HOLE SHOOTER: TAMIKO 05/13/19732 RPT#: [id number] DC DATE: STATUS: ADM IN [facility] [address] [place] [address] END OF REPORT
--- NOTE | 2019-05-13 07:52 | MORECARE ---
CASE MANAGEMENT DISCHARGE SUMMARY PATIENT: OSWALDO VILLEGAS UNIT: [id number] ADM DATE: 05/10/19 AGE: 44 : 79 SEX: M ROOM/BED: D.2102 AUTHOR: PATRICIA,DOC PHYSICIAN: REFERRING PHYSICIAN: JEANA OKEEFE MD DATE OF SERVICE: 05/13/19 Discharge Plan Patient Name: OSWALDO VILLEGAS Facility: [facility]:[place] : 1975 Planned Disposition: Psych facility Anticipated Discharge Date: 05/13/19 Discharge Date: Expected LOS: 3 Initial Reviewer: [email or web address] Initial Review Date: 05/10/2019 Generated: 05/13/19 8:52 am Comments DCP- Discharge Planning Updated by [email or web address]: Maciej Mcgill on 05/13/19 6:[address] Patient Name: OSWALDO VILLEGAS Encounter No: [id number] : 1975 Primary Insurance: MEDICAID [place] Anticipated DC Date: 05-13-2019 Planned Disposition: Psych facility External Planned Provider: [facility] ACCEPTING INPATIENT PSYCHIATRIC FACILITY DCP follow-up note: CM SPOKE TO BEDSIDE NURSE WHO INFORMED CM THAT [facility]SFER CENTER CALLED REGARDING THE PT'S TRANSFER. CM REVIEWED CHART, PSYCHIATRY NOTE FROM 05-12 HAS BEEN ENTERED RECOMMENDING INPATIENT PSYCHIATRIC TREATMENT. CM FAXED UPDATE TO [facility], . CM CALLED TRANSFER CENTER, , SPOKE TO DORCAS WHO ADVISED THAT THEY HAVE NOT MADE ANY CALLS REGARDING PLACEMENT THEY WERE CONTACTED OVER WEEKEND AND TOLD TO HOLD TRANSFER PENDING THE CM SPEAKING TO THE DOCTOR. CM ADVISED THAT UPDATE WAS FAXED TO THEM WITH PSYCHIATRY RECOMMENDING INPATIENT PSYCHIATRIC CARE AND THAT PT IS VOLUNTARY FOR ADMISSION. CM WAITING ACCEPTING INPATIENT PSYCHIATRIC FACILITY, [facility] WORKING ON THIS NOW. Maciej Mcgill, CASE GABRIELA DCP- Discharge Planning Updated by [email or web address]: Vonda Ruiz on 05/10/19 6:[address] CM met with patient regarding order for Psychiatric transfer. CM met with patient briefly, and patient states he is in agreement to same. Polite, states "have a happy life" when I am leaving the room . Patient is calm and cooperative. Patient denies SI/HI. Patient states he is his own POA. @9645 CM faxed patient chart to [facility] #[phone], phone #[phone]. Also, spoke with Beverley, [facility] to give brief report of same. Provided phone number #[phone] for contact. Pending psych evaluation at this time. Vonda Ruiz RN Last DP export: 05/13/19 6:33 a Patient Name: OSWALDO VILLEGAS Page 37558 at 0752 All edits/amendments must be made on the electronic document DICTATION DATE: 05/13/19751 NURSE SEXUAL ASSAULT: TAMIKO 05/13/19751 RPT#: [id number] DC DATE: STATUS: ADM IN [facility] [address] [place] [address] END OF REPORT
[2019-05-13 08:00] VITALS: BP 142/93
[2019-05-13] MEDS ORDERED: MAG-OXIDE400 MG PO (11:01)
--- NOTE | 2019-05-13 11:03 | MORECARE ---
CASE MANAGEMENT DISCHARGE SUMMARY PATIENT: OSWALDO VILLEGAS UNIT: [id number] ADM DATE: 05/10/19 AGE: 44 : 79 SEX: M ROOM/BED: D.2102 AUTHOR: PATRICIA,DOC PHYSICIAN: REFERRING PHYSICIAN: JEANA OKEEFE MD DATE OF SERVICE: 05/13/19 Discharge Plan Patient Name: OSWALDO VILLEGAS Facility: [facility]:[place] : 1975 Planned Disposition: Psych facility Anticipated Discharge Date: 05/13/19 Discharge Date: Expected LOS: 3 Initial Reviewer: [email or web address] Initial Review Date: 05/10/2019 Generated: 05/13/19 12:03 pm Comments DCP- Discharge Planning Updated by [email or web address]: Maciej Mcgill on 05/13/19 10:[address] Patient Name: OSWALDO VILLEGAS Encounter No: [id number] : 1975 Primary Insurance: MEDICAID [place] Anticipated DC Date: 05-13-2019 Planned Disposition: Psych facility External [facility] Provider[facility] DCP follow-up note: CM SPOKE TO BEDSIDE NURSE WHO INFORMED CM THAT SHE RECEIVED CALL FROM [facility] TRANSF[facility] WHO PROVIDED ACCEPTING PSYCHIATRIC FACILITY AND NUMBER FOR NURSE REPORT, [facility], . RN [facility] NOTIFIED MIKE COOL. BEDSIDE NURSE TO CALL NURSE REPORT TO [facility] IN [place], . PT TO TRANSFER VIA AMBULANCE. Maciej Mcgill. CASE MANAGEMENT DCP- Discharge Planning Updated by [email or web address]: Maciej Mcgill on 05/13/19 6:[address] Patient Name: OSWALDO VILLEGAS Encounter No: [id number] : 1975 Primary Insurance: MEDICAID [place] Anticipated DC Date: 05-13-2019 Planned Disposition: Psych facility External Planned Provider: FIRST ACCEPTING INPATIENT PSYCHIATRIC FACILITY DCP follow-up note: CM SPOKE TO BEDSIDE NURSE WHO INFORMED CM THAT TRANSFER CENTER CALLED REGARDING THE PT'S TRANSFER. CM REVIEWED CHART, PSYCHIATRY NOTE FROM 05-12 HAS BEEN ENTERED RECOMMENDING INPATIENT PSYCHIATRIC TREATMENT. CM FAXED UPDATE TO [facility], . CM CALLED TRANSFER CENTER, , SPOKE TO DORCAS WHO ADVISED THAT THEY HAVE NOT MADE ANY CALLS REGARDING PLACEMENT THEY WERE CONTACTED OVER WEEKEND AND TOLD TO HOLD TRANSFER PENDING THE CM SPEAKING TO THE DOCTOR. CM ADVISED THAT UPDATE WAS FAXED TO THEM WITH PSYCHIATRY RECOMMENDING INPATIENT PSYCHIATRIC CARE AND THAT PT IS VOLUNTARY FOR ADMISSION. CM WAITING ACCEPTING INPATIENT PSYCHIATRIC FACILITY, [facility] WORKING ON THIS NOW. Maciej Mcgill, CASE MANAGEMENT DCP- Discharge Planning Updated by [id number]: Vonda Ruiz on 05/10/19 6:[address] CM met with patient regarding order for Psychiatric transfer. CM met with patient briefly, and patient states he is in agreement to same. Polite, states "have a happy life" when I am leaving the room . Patient is calm and cooperative. Patient denies SI/HI. Patient states he is his own POA. @1905 CM faxed patient chart to [facility] #[phone], phone #[phone]. Also, spoke with Beverley, [facility] to give brief report of same. Provided phone number #[phone] for contact. Pending psych evaluation at this time. oVnda Ruiz RN Last DP export: 05/13/19 6:52 a Patient Name: OSWALDO VILLEGAS Page 17505 at 1103 All edits/amendments must be made on the electronic document DICTATION DATE: 05/13/191102 MICA PLATE LAYER HAND: TAMIKO 05/13/191102 RPT#: [id number] DC DATE: STATUS: ADM IN [facility] [address] [place] [address] END OF REPORT
[2019-05-13 12:04] VITALS: BP 133/99
--- NOTE | 2019-05-13 15:57 | NUR ---
TRANSPORT TO [facility] IN [place] [facility]IA [facility] [employer]. REPORT CALLED TO PAU HOFF RN. WILL BE GOING TO ROOM 314A. ALL PERSONAL BELONGINGS TAKEN WITH PT.
--- NOTE | 2019-05-19 12:28 | CN ---
PATIENT NAME:OSWALDO VILLEGAS MEDICAL RECORD: [id number] : [birth year] LOCATION:[facility] D.2102 ADMIT DATE: 05/10/19 ACCOUNT: [id number] CONSULTING PHYSICIAN: HAMIDA SY MD REFERRING PHYSICIAN: JEANA OKEEFE MD DATE OF CONSULTATION: 05/12/2019 HISTORY OF PRESENT ILLNESS: Mr. Villegas is a 44-year-old male who was admitted after he stated that he was "not feeling well," after having the methamphetamine and drinking alcohol, also noted that he was having tardive dyskinesia type movements and had been up for several days. Into the admission, he also reported suicidal ideations and his mother had called stating that she is very concerned that he might kill himself. On my interview with him, the patient does report intermittent suicidal ideations, states that he is "tired of being tired" and notes that it is time for him to get his life together after 20 years of being nonproductive. He denies auditory or visual hallucinations or delusions. PAST PSYCHIATRIC HISTORY: He reported in a chart review, states a couple months ago, he tried to kill himself with a tool but simply did not go deep enough. He denies any inpatient admissions, although he is on Paxil provided by a primary care doctor. PAST MEDICAL HISTORY: Hypertension. He is currently being treated for rhabdomyolysis and dehydration. ALLERGIES: No known drug allergies. SOCIAL HISTORY: He lives with his mother and they rent a room from another lady. He states that he and his mother get in occasional disagreements. He reports he has 2 children, ages 23 and 21, who live in [place]. He is in contact with only one of them. He is unemployed. FAMILY HISTORY: States some depression and substance abuse. MENTAL STATUS EXAMINATION: GENERAL: This is a 44-year-old male, disheveled, cooperative with interview with good eye contact. He has got a huge tattoo on his right side reporting [facility] 3:16. NEUROLOGIC: His speech is a slight lisp maybe. Thought process is rational but concrete, relevant, and goal directed. Thought content positive for intermittent SI, negative for HI. Negative for auditory or visual hallucinations, negative for delusions. COGNITIVE EXAM: Alert and oriented times 3. ASSESSMENT: 1. MDE, moderate, recurrent. 2. Ethanol use disorder, methamphetamine use disorder, history of cocaine use disorder. PLAN: Will recommend inpatient admission for continuing risk of self-harm. I have also told him about the alcohol residential program [facility] 3:16, which he is highly interested. Case discussed with nursing, chart reviewed and patient interviewed. CONSULT REPORT [id number] OSWALDO VILLEGAS TRANSINT:[id number] Voice Confirmation ID: [id number] DOCUMENT ID: [id number] HAMIDA SY MD at 1228 CC: [id number] DICTATION DATE: 05/12/19 1352 BASS SINGER: 05/12/19 1816 DIS IN 05/13/19 [facility] [address] [place] [address]
== END 2019-05-13 15:59 | DRG 640 ==
LOC: D.ER 23:32 → D.M2 05-10 02:57
PROVIDERS: Family Medicine; ADMIT Emergency Medicine; ATTEND Emergency Medicine
DX: E87.6 Hypokalemia (principal); G92 Toxic encephalopathy; F15.150 Other stimulant abuse with stimulant-induced psychotic disorder with delusions; M62.82 Rhabdomyolysis; E83.42 Hypomagnesemia; D64.9 Anemia, unspecified; F15.10 Other stimulant abuse, uncomplicated; F10.10 Alcohol abuse, uncomplicated; I10 Essential (primary) hypertension; G24.01 Drug induced subacute dyskinesia

== ENCOUNTER 2019-06-15 03:13 | Inpatient (IN) | payer MEDICAID ==
[~2019-06-15] VITALS: Ht 180.3 cm; Wt 83.9 kg
[~2019-06-15 03:13] MED LIST changes: +ELIQUIS2.5 MG PO; +MAG-OXIDE400 MG PO; +NEURONTIN 300300 MG PO; +PROZAC20 MG PO; +TENORMIN25 MG PO
--- NOTE | 2019-06-15 03:41 | NUR ---
MENTAL HEALTH RN AT BEDSIDE PERFORMING ASSESSMENT. PT DENIES SI AND IS SAFE TO STAY IN CURRENT ROOM.
--- NOTE | 2019-06-15 03:42 | NUR ---
DR. HAQUE NOTIFIED AND REVIEWED PT'S BEHAVIOR AND ASSESSMENT RESULTS. PT IS A LOW RISK PER DR. HAQUE. DR. HAQUE STATED TO GIVE RESOURCES TO PT AT TIME OF DISCHARGE. NO FURTHER ORDERS AT THIS TIME. RESOURCES REVIEWED WITH PT AND HE VERBALIZED UNDERSTANDING.
[2019-06-15 03:44] LABS: BASOPHILS 0.8 % (0-2); EOSINOPHILS 1.7 % (0-7); HEMATOCRIT 25.4 % (42.0-54.0); HEMOGLOBIN 8.1 g/dL (13.5-17.5); IMMATURE GRANULOCYTES 0.6 % (0-5); LYMPHOCYTES 30.6 % (15-50); MCH 33.6 pg (26.0-34.0); MCHC 31.9 g/dL (31.0-37.0); MCV 105.4 fL (80.0-100.0); MEAN PLATELET VOLUME 8.2 fL (7.4-10.4); MONOCYTES 7.7 % (2-11); NEUTROPHILS 58.6 % (40-80); RBC 2.41 10x6/uL (4.20-6.10); RDW 13.6 % (11.5-14.5); WBC 6.5 10x3/uL (4.8-10.8)
[2019-06-15 03:51] LABS: PLATELET COUNT 507 10x3/uL (130-400)
[2019-06-15 03:58] LABS: APTT 28.2 SECONDS (22.8-39.4); INR 0.96 (0.85-1.17); PROTIME 12.3 SECONDS (11.6-15.0)
[2019-06-15 04:07] LABS: CALC OSMOLALITY 292 mosm/kg (275-300); CALCIUM 8.6 mg/dL (8.5-10.1); CARBON DIOXIDE 24.6 mmol/L (21.0-32.0); CHLORIDE - SERUM 112 mmol/L (98-107); GLUCOSE 95 mg/dL (74-106); POTASSIUM - SERUM 3.7 mmol/L (3.5-5.1); SODIUM 146 mmol/L (136-145); UREA NITROGEN 17 mg/dL (7-18); eGFR NON AFRICAN AMERICAN 87 mL/min (90-120)
[2019-06-15 04:13] LABS: ALBUMIN 2.8 g/dL (3.4-5.0); ALKALINE PHOSPHATASE 96 U/L (46-116); ALT (SGPT) 16 U/L (10-68); BILIRUBIN - TOTAL 0.21 mg/dL (0.2-1.3); PROTEIN - SERUM 6.8 g/dL (6.4-8.2)
--- NOTE | 2019-06-15 04:55 | NUR ---
RN SPOKE TO PT MOTHER, KALLIE, WITH PT VERBAL CONSENT. PT MOTHER REPORTS SHE WILL COME TO ED SHORTLY.
--- NOTE | 2019-06-15 05:08 | NUR ---
PT LEFT ED VIA STRETCHER FOR CT.
--- NOTE | 2019-06-15 05:25 | NUR ---
PT RETURNED FROM CT VIA STRETCHER.
[2019-06-15 05:28] LABS: % SATURATION 15 % (15-55); IRON 38 ug/dl (35-150); TOTAL IRON BIND CAPACITY 248 ug/dl (260-445); UNSAT IRON BIND CAPACITY 210 ug/dl (150-375)
[2019-06-15 05:45] LABS: MAGNESIUM - SERUM 1.5 mg/dL (1.8-2.4)
--- NOTE | 2019-06-15 06:40 | NUR ---
WOUND CULTURE AND GRAM STAIN OBTAINED FROM PT L HIP. PT UPDATED ON PLAN OF CARE.
[2019-06-15 07:49] VITALS: BP 139/89
[2019-06-15 10:58] LABS: APPEARANCE CLOUDY (CLEAR); BILIRUBIN NEGATIVE (NEGATIVE); COLOR YELLOW (YELLOW); GLUCOSE NEGATIVE (NEGATIVE); KETONE NEGATIVE (NEGATIVE); NITRITE NEGATIVE (NEGATIVE); PROTEIN NEGATIVE (NEGATIVE); SPECIFIC GRAVITY 1.015 (1.005-1.020); UROBILINOGEN NORMAL (NORMAL)
[2019-06-15 10:59] LABS: UDS - AMPHET NEGATIVE QUAL (NEGATIVE); UDS - BARB NEGATIVE QUAL (NEGATIVE); UDS - BENZO POSITIVE QUAL (NEGATIVE); UDS - COCAINE NEGATIVE QUAL (NEGATIVE); UDS - OPIATE NEGATIVE QUAL (NEGATIVE); UDS - PCP NEGATIVE QUAL (NEGATIVE); UDS - THC POSITIVE QUAL (NEGATIVE)
[2019-06-15 11:01] VITALS: BP 136/65
[2019-06-15 13:10] VITALS: BP 135/87
[2019-06-15 16:58] VITALS: BP 115/76
--- NOTE | 2019-06-15 19:00 | NUR ---
BEDSIDE REPORT RECEIVED AND CARE OF PT ASSUMED. PT LYING IN SUPINE POSITION WATCHING TV. IV TO LEFT HAND PATENT WITH BANANA BAG INFUSING. DRESSING ON LEFT HIP WITH STAINING FROM BLEEDING. WILL MONITOR FOR NEEDS.
--- NOTE | 2019-06-15 20:32 | NUR ---
HS MEDICATIONS GIVEN TO INCLUDE MORPHINE IVP FOR PAIN. WILL CONTINUE TO MONITOR FOR NEEDS.
[2019-06-15 21:25] VITALS: BP 147/86
--- NOTE | 2019-06-15 22:01 | NUR ---
GAVE SANDWICH TRAY AND JELLO FOR HS SNACK.
[2019-06-16] VITALS (11 sets, daily range): BP systolic 120–152; BP diastolic 70–103; Ht 180.3 cm; Wt 83.9 kg
--- NOTE | 2019-06-16 02:50 | NUR ---
HIBACLENS BATH PERFORMED AND ALL LINENS AND GOWN CHANGED.
[2019-06-16 06:52] LABS: BASOPHILS 0.4 % (0-2); EOSINOPHILS 1.6 % (0-7); HEMATOCRIT 23.3 % (42.0-54.0); IMMATURE GRANULOCYTES 0.5 % (0-5); MCH 33.2 pg (26.0-34.0); MCHC 31.8 g/dL (31.0-37.0); MCV 104.5 fL (80.0-100.0); MEAN PLATELET VOLUME 8.3 fL (7.4-10.4); MONOCYTES 6.8 % (2-11); NEUTROPHILS 61.7 % (40-80); PLATELET COUNT 446 10x3/uL (130-400); RBC 2.23 10x6/uL (4.20-6.10); RDW 13.6 % (11.5-14.5); WBC 7.3 10x3/uL (4.8-10.8)
[2019-06-16 06:55] LABS: HEMOGLOBIN 7.4 g/dL (13.5-17.5)
[2019-06-16 07:06] LABS: CALC OSMOLALITY 283 mosm/kg (275-300); CALCIUM 7.8 mg/dL (8.5-10.1); CARBON DIOXIDE 25.9 mmol/L (21.0-32.0); CHLORIDE - SERUM 109 mmol/L (98-107); GLUCOSE 109 mg/dL (74-106); POTASSIUM - SERUM 3.6 mmol/L (3.5-5.1); SODIUM 142 mmol/L (136-145); UREA NITROGEN 13 mg/dL (7-18)
[2019-06-16 07:10] LABS: CREATININE - SERUM 0.7 mg/dL (0.6-1.3); eGFR NON AFRICAN AMERICAN > 90 mL/min (90-120)
[2019-06-16 10:00] LABS: ERYTHROCYTE SEDIMENTATION RATE 70 mm/hr (0-15)
--- NOTE | 2019-06-16 19:19 | NUR ---
IN BED WITH TELEVISION ON, SHOWS NO S/S OF ANY ACUTE DISTRESS. ABLE TO VOICE ALL NEEDS. QUESTIONS TIME FOR PAIN MEDICATION, DISCUSSED LEVEL AND TIMES AVAILABLE. WILL NOTE ANY CHANGE.
[2019-06-17] VITALS (14 sets, daily range): BP systolic 130–169; BP diastolic 76–109
--- NOTE | 2019-06-17 02:22 | NUR ---
I have reviewed this patient and I concur with the Shift Assessment completed by the Licensed Practical Nurse today this shift.
--- NOTE | 2019-06-17 05:52 | NUR ---
RESTED WELL THIS SHIFT. STATED HIS HIBICLENSE BATH THIS MORNING REALLY MADE HIM FEEL BETTER, JOKINGLY ASKED FOR A BISCUIT THIS MORNING, REQUEST DENIED DUE TO NPO STATUS. VERY PLEASANT.
[2019-06-17 08:14] LABS: BASOPHILS 0.3 % (0-2); EOSINOPHILS 1.9 % (0-7); IMMATURE GRANULOCYTES 0.4 % (0-5); LYMPHOCYTES 29.4 % (15-50); MCH 31.6 pg (26.0-34.0); MCHC 31.4 g/dL (31.0-37.0); MEAN PLATELET VOLUME 8.9 fL (7.4-10.4); MONOCYTES 8.8 % (2-11); NEUTROPHILS 59.2 % (40-80); PLATELET COUNT 371 10x3/uL (130-400); RDW 17.1 % (11.5-14.5); WBC 6.7 10x3/uL (4.8-10.8)
--- NOTE | 2019-06-17 08:15 | NUR ---
PATIENT RESTING IN BED. AWAKE. CL IN REACH. WILL NOTIFY WHEN HIS PROCEDURE WILL BE WHEN I KNOW. SYLWIA
[2019-06-17 08:16] LABS: HEMATOCRIT 32.5 % (42.0-54.0); HEMOGLOBIN 10.2 g/dL (13.5-17.5); MCV 100.6 fL (80.0-100.0); RBC 3.23 10x6/uL (4.20-6.10)
--- NOTE | 2019-06-17 09:26 | NUR ---
CALLED KALLIE VALDES TO LET HER KNOW PATIENT WAS GOING TO SURGERY PER REQUEST. SAID SHE WOULD BE HERE WHEN HE GOT OUT OF SURGERY
[2019-06-17 09:42] LABS: ALBUMIN 2.5 g/dL (3.4-5.0); ALKALINE PHOSPHATASE 80 U/L (46-116); ALT (SGPT) 18 U/L (10-68); BILIRUBIN - TOTAL 0.43 mg/dL (0.2-1.3); CALC OSMOLALITY 278 mosm/kg (275-300); CALCIUM 8.3 mg/dL (8.5-10.1); CARBON DIOXIDE 28.5 mmol/L (21.0-32.0); CHLORIDE - SERUM 108 mmol/L (98-107); CREATININE - SERUM 0.8 mg/dL (0.6-1.3); GLUCOSE 90 mg/dL (74-106); MAGNESIUM - SERUM 1.8 mg/dL (1.8-2.4); POTASSIUM - SERUM 3.8 mmol/L (3.5-5.1); PROTEIN - SERUM 6.4 g/dL (6.4-8.2); SODIUM 141 mmol/L (136-145); eGFR NON AFRICAN AMERICAN > 90 mL/min (90-120)
[2019-06-17 09:46] LABS: UREA NITROGEN 8 mg/dL (7-18)
--- NOTE | 2019-06-17 14:24 | MORECARE ---
CASE MANAGEMENT DISCHARGE SUMMARY PATIENT: OSWALDO VILLEGAS UNIT: [id number] ADM DATE: 06/15/19 AGE: 44 : [birth year] SEX: M ROOM/BED: D.2205 AUTHOR: JEB GOMEZ PHYSICIAN: REFERRING PHYSICIAN: DOMINIC SAMUELS MD DATE OF SERVICE: 06/17/19 Discharge Plan Patient Name: OSWALDO VILLEGAS Facility: [facility]:[place] : 1975 Planned Disposition: Home with Home Health Anticipated Discharge Date: Discharge Date: Expected LOS: Initial Reviewer: [email or web address] Initial Review Date: 06/15/2019 Generated: 06/17/19 3:23 pm Patient Name: OSWALDO VILLEGAS Page [id number] at 1424 All edits/amendments must be made on the electronic document DICTATION DATE: 06/17/191422 ONLINE ACTIVIST: TAMIKO 06/17/191422 RPT#: [id number] DC DATE: STATUS: ADM IN [facility] [address] [place] [address] END OF REPORT
--- NOTE | 2019-06-17 14:34 | MORECARE ---
CASE MANAGEMENT DISCHARGE SUMMARY PATIENT: OSWALDO VILLEGAS UNIT: [id number] ADM DATE: 06/15/19 AGE: 44 : [birth year] SEX: M ROOM/BED: D.2205 AUTHOR: PATRICIA,DOC PHYSICIAN: REFERRING PHYSICIAN: DOMINIC SAMUELS MD DATE OF SERVICE: 06/17/19 Discharge Plan Patient Name: OSWALDO VILLEGAS Facility: [facility]:[place] : 1975 Planned Disposition: Home with Home Health Anticipated Discharge Date: Discharge Date: Expected LOS: Initial Reviewer: [email or web address] Initial Review Date: 06/15/2019 Generated: 06/17/19 3:34 pm Comments DCP- Discharge Planning Updated by [email or web address]: Nishi Puckett on 06/17/19 1:[address] Patient Name: OSWALDO VILLEGAS Admission Status: ER Accout number: [id number] Admission Date: 06-15-2019 : 1975 Admission Diagnosis: Attending: DOMINIC SAMUELS Current LOS: 2 Anticipated DC Date: Planned Disposition: Home with Home Health Primary Insurance: MEDICAID [place] Discharge Planning Comments: CM met with patient to complete initial dc planning assessment. CM educated patient on the CM role and verbal consent given by patient to complete assessment. Patient lives at home with his mother and momma b. At discharge patient plans to return home and feels this is a safe discharge. CM discussed availability of home health, rehab services, and medical equipment. He is current with [facility] and plans to resume at DC. He has a cane, walker, shower chair, elevated toilet seat. Patient denied known discharge needs at this time. CM will continue to follow and will assist as needed with dc plans/needs. Milieu Technician: Nishi Puckett DCPIA - Discharge Planning Initial Assessment Updated by [email or web address]: Nishi Puckett on 06/17/19 2:23 pm * Is the patient Alert and Oriented? Yes * PCP JANELLE * Pharmacy [facility] * Preadmission Environment Home with Family * ADLs Independent * Equipment Bedside Commode Cane Elevated Toliet Seat Rolling Walker Shower Chair * List name and contact numbers for known caregivers / representatives who currently or will assist patient after discharge: KALLIE (MOTHER) [phone] * Verbal permission to speak to the caregivers and representatives has been obtained from the patient. N/A * Community resources currently utilized Home Health * Please name any agencies selected above. [facility] * Additional services required to return to the preadmission environment? Yes * Can the patient safely return to the preadmission environment? Yes * Has this patient been hospitalized within the prior 30 days at any hospital? Yes Coverage Notice Reviewer: [id number] Bernard Puckett Notice Issued Date-Time: 06/17/2019 9:00 Notice Type: Patient Choice Letter Notice Delivered To: Patient Relationship to Patient: Ticket Scheduler Name: Delivery Method: HAND - Hand Delivered Tonia Days: Prior Verbal Notification: Recipient Understood Notice: Yes Recipient Signature: Yes Med Rec Note Co-signed by Attending: Coverage Notice Comment: Last DP export: 06/17/19 1:23 Patient Name: OSWALDO VILLEGAS Page 25193 at 1434 All edits/amendments must be made on the electronic document DICTATION DATE: 06/17/191433 FOOD EQUIPMENT SERVICE TECHNICIAN: TAMIKO 06/17/19 143 RPT#: [id number] DC DATE: STATUS: ADM IN [facility] [address] [place] [address] END OF REPORT
[2019-06-18 02:26] VITALS: BP 138/74
[2019-06-18 05:51] VITALS: BP 140/72
--- NOTE | 2019-06-18 07:20 | NUR ---
I have reviewed this patient and I concur with the Shift Assessment completed by the Licensed Practical Nurse today this shift.
[2019-06-18 07:22] LABS: BASOPHILS 0.1 % (0-2); EOSINOPHILS 0.3 % (0-7); HEMATOCRIT 28.7 % (42.0-54.0); HEMOGLOBIN 9.1 g/dL (13.5-17.5); IMMATURE GRANULOCYTES 0.3 % (0-5); LYMPHOCYTES 22.6 % (15-50); MCH 31.3 pg (26.0-34.0); MCHC 31.7 g/dL (31.0-37.0); MEAN PLATELET VOLUME 8.5 fL (7.4-10.4); MONOCYTES 7.1 % (2-11); NEUTROPHILS 69.6 % (40-80); PLATELET COUNT 328 10x3/uL (130-400); RBC 2.91 10x6/uL (4.20-6.10); RDW 16.2 % (11.5-14.5); WBC 7.8 10x3/uL (4.8-10.8)
[2019-06-18 07:25] LABS: MCV 98.6 fL (80.0-100.0)
[2019-06-18 07:41] LABS: ALBUMIN 2.5 g/dL (3.4-5.0); ALKALINE PHOSPHATASE 78 U/L (46-116); ALT (SGPT) 20 U/L (10-68); BILIRUBIN - TOTAL 0.36 mg/dL (0.2-1.3); CALC OSMOLALITY 275 mosm/kg (275-300); CALCIUM 8.1 mg/dL (8.5-10.1); CARBON DIOXIDE 26.8 mmol/L (21.0-32.0); CHLORIDE - SERUM 106 mmol/L (98-107); CREATININE - SERUM 0.7 mg/dL (0.6-1.3); GLUCOSE 100 mg/dL (74-106); POTASSIUM - SERUM 3.9 mmol/L (3.5-5.1); PROTEIN - SERUM 6.5 g/dL (6.4-8.2); SODIUM 139 mmol/L (136-145); UREA NITROGEN 8 mg/dL (7-18); eGFR NON AFRICAN AMERICAN > 90 mL/min (90-120)
[2019-06-18 08:45] VITALS: BP 145/92
--- NOTE | 2019-06-18 09:30 | NUR ---
TUBING BECAME DISCONNECTED AT HEMOVAC. REATTACHED. IV RETAPED. CL IN REACH. WCTM
[2019-06-18 12:16] VITALS: BP 152/104
--- NOTE | 2019-06-18 13:38 | NUR ---
NUTRITION F/U CHART REVIEWED. PT VISIT. TOLERATING REG DIET WITH 100% INTAKE RECENT MEALS. WILL CONTINUE TO HONOR FOOD PREFERENCES, MONITOR PO INTAKE. RD FOLLOWING
[2019-06-18 16:44] VITALS: BP 158/103
[2019-06-18 19:00] VITALS: BP 165/96
[2019-06-19] VITALS: BP 170/82
--- NOTE | 2019-06-19 00:33 | NUR ---
REC'D CHGE OG SHIFT WALKING ROUNDS.IN BED DRSG LEFT HIP WITH HEMOVAC DRAIN IN PLACE.NEUROVASCULAR STATUS WNL.PEDAL PULSE PRESENT WIGGLES TOES AND DORSIFLEXES WILL CONTINUE TO MONITOR FOR ANY CHGES IN NEUROVASCULAR STATUS AND FOLLOW CURRENT PLAN OF CARE
[2019-06-19 05:00] VITALS: BP 163/112
[2019-06-19 05:59] LABS: BASOPHILS 0.2 % (0-2); HEMATOCRIT 29.4 % (42.0-54.0); HEMOGLOBIN 9.3 g/dL (13.5-17.5); IMMATURE GRANULOCYTES 0.2 % (0-5); LYMPHOCYTES 23.9 % (15-50); MCH 31.7 pg (26.0-34.0); MCHC 31.6 g/dL (31.0-37.0); MCV 100.3 fL (80.0-100.0); MEAN PLATELET VOLUME 8.5 fL (7.4-10.4); MONOCYTES 9.6 % (2-11); NEUTROPHILS 64.1 % (40-80); PLATELET COUNT 318 10x3/uL (130-400); RBC 2.93 10x6/uL (4.20-6.10); WBC 8.1 10x3/uL (4.8-10.8)
[2019-06-19 06:37] LABS: ALBUMIN 2.6 g/dL (3.4-5.0); ALKALINE PHOSPHATASE 84 U/L (46-116); ALT (SGPT) 22 U/L (10-68); BILIRUBIN - TOTAL 0.32 mg/dL (0.2-1.3); CALC OSMOLALITY 276 mosm/kg (275-300); CALCIUM 8.3 mg/dL (8.5-10.1); CARBON DIOXIDE 28.1 mmol/L (21.0-32.0); CHLORIDE - SERUM 104 mmol/L (98-107); CREATININE - SERUM 0.8 mg/dL (0.6-1.3); GLUCOSE 90 mg/dL (74-106); POTASSIUM - SERUM 3.5 mmol/L (3.5-5.1); PROTEIN - SERUM 6.6 g/dL (6.4-8.2); SODIUM 139 mmol/L (136-145); UREA NITROGEN 9 mg/dL (7-18); eGFR NON AFRICAN AMERICAN > 90 mL/min (90-120)
--- NOTE | 2019-06-19 07:35 | NUR ---
I have reviewed this patient and I concur with the Shift Assessment completed by the Licensed Practical Nurse today this shift.
--- NOTE | 2019-06-19 08:12 | NUR ---
AWAKE AND ALERT. ORIENTED X3. NO C/O AT THIS TIME. LUNGS ARE CLEAR BILATERALLY, NO COUGH NOTED. SKIN IS INTACT WTIHOUT REDNESS EXCEPT INCISION TO LEFT HIP WHICH HAS A DRY INTACT DRESSING IN PLACE WELL A HEMOVAC WITH SCANT SEROUS SANGUINESS DRAINAGE. WILL MONITOR. IV TO LEFT HAND IS PATENT WTIHOUT REDNESS AT INSERTION SITE. DENIES NEEDS.
[2019-06-19 08:56] VITALS: BP 143/89
--- NOTE | 2019-06-19 10:00 | NUR ---
REQUESTED AND GIVNE 2MG MORPHINE SLOW IVP FOR C/O LEFT HIP PAIN LEVEL 8. WILL MONITOR.
--- NOTE | 2019-06-19 11:00 | NUR ---
RESTING QUIETLY IN BED. DENIES NEEDS. NO C/O PAIN AT THIS TIME.
[2019-06-19] MEDS ORDERED: HYDROCODON-ACE1 EA10 PO (12:24)
[2019-06-19] MEDS ORDERED: SULFAMETHOXAZOL1 TA2 PO (12:25)
--- NOTE | 2019-06-19 13:50 | NUR ---
HE[facility]AC D/C WITHOUT DIFFICULTY. DRESSING TO LEFT HIP CHANGED WELL. INCISION IS CLEAN DRY AND WELL APPROXIMATED WITH CLIPS INTACT. PATIENT INSTRUCTED IN CARE OF WOUNDS. ALL QUESTIONS ANSWERED.
--- NOTE | 2019-06-19 14:24 | MORECARE ---
CASE MANAGEMENT DISCHARGE SUMMARY PATIENT: OSWALDO VILLEGAS UNIT: [id number] ADM DATE: 06/15/19 AGE: 44 : [birth year] SEX: M ROOM/BED: D.2205 AUTHOR: PATRICIA,DOC PHYSICIAN: REFERRING PHYSICIAN: DOMINIC SAMUELS MD DATE OF SERVICE: 06/19/19 Discharge Plan Patient Name: OSWALDO VILLEGAS Facility: [facility]:[place] : 1975 Planned Disposition: Home with Home Health Anticipated Discharge Date: Discharge Date: Expected LOS: Initial Reviewer: [email or web address] Initial Review Date: 06/15/2019 Generated: 06/19/19 3:23 pm Comments DCP- Discharge Planning Updated by [email or web address]: Nishi Puckett on 06/19/19 1:[address] PATIENT DISCHARGING HOME WITH HIS MOM AND WILL RESUME [facility]. ALL CLINICAL SENT TO [facility] COUNT INCLUDES THE [facility] DCP- Discharge Planning Updated by [email or web address]: Nishi Puckett on 06/17/19 1:[address] Patient Name: OSWALDO VILLEGAS Admission Status: ER Accout number: [id number] Admission Date: 06-15-2019 : 1975 Admission Diagnosis: Attending: DOMINIC SAMUELS Current LOS: 2 Anticipated DC Date: Planned Disposition: Home with Home Health Primary Insurance: MEDICAID [place] Discharge Planning Comments: CM met with patient to complete initial dc planning assessment. CM educated patient on the CM role and verbal consent given by patient to complete assessment. Patient lives at home with his mother and momma b. At discharge patient plans to return home and feels this is a safe discharge. CM discussed availability of home health, rehab services, and medical equipment. He is current with [facility] and plans to resume at DC. He has a cane, walker, shower chair, elevated toilet seat. Patient denied known discharge needs at this time. CM will continue to follow and will assist as needed with dc plans/needs. Utilization Manager: Nishi Puckett DCPIA - Discharge Planning Initial Assessment Updated by [email or web address]: Nishi Puckett on 06/17/19 2:23 pm * Is the patient Alert and Oriented? Yes * PCP JANELLE * Pharmacy [facility] * Preadmission Environment Home with Family * ADLs Independent * Equipment Bedside Commode Cane Elevated Toliet Seat Rolling Walker Shower Chair * List name and contact numbers for known caregivers / representatives who currently or will assist patient after discharge: KALLIE (MOTHER) [phone] * Verbal permission to speak to the caregivers and representatives has been obtained from the patient. N/A * Community resources currently utilized Home Health * Please name any agencies selected above. [facility] * Additional services required to return to the preadmission environment? Yes * Can the patient safely return to the preadmission environment? Yes * Has this patient been hospitalized within the prior 30 days at any hospital? Yes External Providers External Provider: [facility] Next Contact Date: Service Request Date: Service Type: Resolution: Reviewer: Comments: Coverage Notice Reviewer: [email or web address] Bernard Puckett Notice Issued Date-Time: 06/17/2019 9:00 Notice Type: Patient Choice Letter Notice Delivered To: Patient Relationship to Patient: Flat Hammerer Name: Delivery Method: HAND - Hand Delivered Tonia Days: Prior Verbal Notification: Recipient Understood Notice: Yes Recipient Signature: Yes Med Rec Note Co-signed by Attending: Coverage Notice Comment: Last DP export: 06/17/19 1:34 Patient Name: OSWALDO VILLEGAS Page 28387 at 1424 All edits/amendments must be made on the electronic document DICTATION DATE: 06/19/191422 DEFECT REPAIRER GLASSWARE: TAMIKO 06/19/191422 RPT#: [id number] DC DATE: STATUS: ADM IN [facility] [address] [place] [address] END OF REPORT
--- NOTE | 2019-06-19 14:30 | NUR ---
DISCHARGED TO HOME AMBULATORY WITH MOM. DISCHARGE INSTRUCTIONS GIVEN BOTH VERBALLY AND WRITTEN. ALL QUESTIONS ANSWERED. PATIENT VERBALIZED UNDERSTANDING OF SAME. IV TO LEFT HAND D/C WITH CATHETER INTACT. ASSISTED TO DRESS PER STAFF. ALL BELONGINGS WITH PATIENT. EXTRA DRESSINGS SENT WITH PATIENT.
--- NOTE | 2019-06-20 15:23 | MORECARE ---
CASE MANAGEMENT DISCHARGE SUMMARY PATIENT: OSWALDO VILLEGAS UNIT: [id number] ADM DATE: 06/15/19 AGE: 44 : [birth year] SEX: M ROOM/BED: D.2205 AUTHOR: PATRICIADOC PHYSICIAN: REFERRING PHYSICIAN: DOMINIC SAMUELS MD DATE OF SERVICE: 06/20/19 Discharge Plan Patient Name: OSWALDO VILLEGAS Facility: [facility]:[place] : 1975 Planned Disposition: Home with Home Health Anticipated Discharge Date: Discharge Date: 06/19/2019 Expected LOS: 0 Initial Reviewer: [email or web address] Initial Review Date: 06/15/2019 Generated: 06/20/19 4:23 pm Comments DCP- Discharge Planning Updated by [email or web address]: Nishi Puckett on 06/19/19 1:[address] PATIENT DISCHARGING HOME WITH HIS MOM AND WILL RESUME [facility]. ALL CLINICAL SENT TO [facility] DCP- Discharge Planning Updated by [email or web address]: Nishi Puckett on 06/17/19 1:[address] Patient Name: OSWALDO VILLEGAS Admission Status: ER Accout number: [id number] Admission Date: 06-15-2019 : 1975 Admission Diagnosis: Attending: DOMINIC SAMUELS Current LOS: 2 Anticipated DC Date: Planned Disposition: Home with Home Health Primary Insurance: MEDICAID [place] Discharge Planning Comments: CM met with patient to complete initial dc planning assessment. CM educated patient on the CM role and verbal consent given by patient to complete assessment. Patient lives at home with his mother and momma b. At discharge patient plans to return home and feels this is a safe discharge. CM discussed availability of home health, rehab services, and medical equipment. He is current with [facility] and plans to resume at DC. He has a cane, walker, shower chair, elevated toilet seat. Patient denied known discharge needs at this time. CM will continue to follow and will assist as needed with dc plans/needs. Weight Clerk: Nishi uPckett DCPIA - Discharge Planning Initial Assessment Updated by [email or web address]: Nishi Puckett on 06/17/19 2:23 pm * Is the patient Alert and Oriented? Yes * PCP JANELLE * Pharmacy [facility] * Preadmission Environment Home with Family * ADLs Independent * Equipment Bedside Commode Cane Elevated [place] Seat Rolling Walker Shower Chair * List name and contact numbers for known caregivers / representatives who currently or will assist patient after discharge: KALLIE (MOTHER) [phone] * Verbal permission to speak to the caregivers and representatives has been obtained from the patient. N/A * Community resources currently utilized Home Health * Please name any agencies selected above. [facility] * Additional services required to return to the preadmission environment? Yes * Can the patient safely return to the preadmission environment? Yes * Has this patient been hospitalized within the prior 30 days at any hospital? Yes Coverage Notice Reviewer: [email or web address] Bernard Puckett Notice Issued Date-Time: 06/17/2019 9:00 Notice Type: Patient Choice Letter Notice Delivered To: Patient Relationship to Patient: Revenue Enforcement Agent Name: Delivery Method: HAND - Hand Delivered Tonia Days: Prior Verbal Notification: Recipient Understood Notice: Yes Recipient Signature: Yes Med Rec Note Co-signed by Attending: Coverage Notice Comment: Last DP export: 06/19/19 1:24 Patient Name: OSWALDO VILLEGAS Page 26623 at 1523 All edits/amendments must be made on the electronic document DICTATION DATE: 06/20/191522 [employer]: TAMIKO 06/20/191522 RPT#: [id number] DC DATE:06/19/19 STATUS: DIS IN [facility] [address] [place] [address] END OF REPORT
--- NOTE | 2019-06-23 08:52 | OP ---
PATIENT NAME: OSWALDO VILLEGAS MEDICAL RECORD: [id number] :[birth year] LOCATION:D.MS [address]5 ADMISSION DATE:06/15/19 SURGEON: SAGAR CASTELLANOS MD DATE OF OPERATION: 06/17/2019 PREOPERATIVE DIAGNOSES: 1. Hematoma of the left hip. 2. Complete tear of all previously repaired musculature. POSTOPERATIVE DIAGNOSES: 1. Hematoma of the left hip. 2. Complete tear of all previously repaired musculature. PROCEDURE: 1. Evacuation of hematoma. 2. Repair of tendon back to bone. 3. Repair of the IT band. SURGEON: Sagar Castellanos MD INTRAOPERATIVE COMPLICATIONS: None. SUMMARY OF PATHOLOGIC FINDINGS: The patient was indeed found to have a very large hematoma. Furthermore, the gluteus medius and minimus attachment that had been reapproximated transosseously had pulled from its repair as had the IT band. 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 However, the hip prosthesis that was put in 2012 had dislocated posteriorly multiple times. We finally agreed to revise him to try and keep this from happening and the revision was done. See separate dictation. In the immediate postoperative setting approximately 7 days after surgery, he was pushed down by his dog and had immediate swelling and pain and decreased range of motion and activity. He was put in the hospital and scheduled for a decompression; however, he ate lunch the day prior to surgery and was canceled until the day of surgery that being 06/17/2019. OPERATIVE SUMMARY IN DETAIL: After obtaining the appropriate preoperative orthopedic surgery consent as well as anesthetic consultation, evaluation and clearance, the patient was brought to the operating room and placed on the operating table in supine position. After adequate general laryngeal mask airway was administered, the patient was placed in right lateral decubitus position. All pressure points were well padded to include down leg peroneal pad as well as axillary roll. The patient was held firmly to the operating table using the vacuum pack suction system. The patient's left hip was prepped and draped in routine sterile fashion. Previously placed xin had been removed. This was followed by reopening the incision and immediate immense amounts of hematoma in the neighborhood of 800 cc was removed. Copious lavage irrigation was followed by curettage and rongeur removal of any nonviable appearing material. Unfortunately, the patient's overall cavity was quite big measuring approximately 20 x 10 x 8 cm. This was completely evacuated. After all evacuation of hematoma was complete, the patient's gluteus medius and minimus was then reapproximated back to the greater trochanter once again using transosseous #5 Ethibond in a [id number] fashion. Good reapproximation was achieved. The IT band was then closed with #2 Ethibond only after a large OPERATIVE REPORT [id number] OSWALDO VILLEGAS quarter-inch Hemovac drain was placed and pulled through the skin. After complete closure of the IT band, the skin was closed with #1 Vicryl, followed by 2-0 Vicryl and skin xin. Sterile dressings were applied. The patient was awakened and taken to the recovery room in stable condition. All final needle and sponge counts were correct. TRANSINT:[id number] Voice Confirmation ID: [id number] DOCUMENT ID: [id number] EMANUEL SWANSON, SAGAR COCHRAN at 0852 CC: [id number] DICTATION DATE: 06/19/19 1206 WORKFORCE SPECIALIST: 06/19/19 1247 DIS IN 06/19/19 [facility] [address] [place] [address]
[2019-06-23 17:08] LABS: AEROBE ID Final report (())
== END 2019-06-19 14:30 | disposition home or self-care (01) | DRG 908 ==
LOC: D.ER 03:13 → D.MS 06:55
PROVIDERS: Emergency Medicine; Family Medicine; Orthopaedic Surgery; ADMIT Internal Medicine Nephrology; ATTEND Internal Medicine Nephrology
PROC: 0LMK0ZZ Reattachment of Left Hip Tendon, Open Approach (ICD-10-PCS; 2019-06-17)
PROC: 0MC Bursae and Ligaments, Extirpation (ICD-10-PCS; principal; 2019-06-17 09:30)
DX: M96.840 Postprocedural hematoma of a musculoskeletal structure following a musculoskeletal system procedure (principal); D62 Acute posthemorrhagic anemia; E87.0 Hyperosmolality and hypernatremia; N17.9 Acute kidney failure, unspecified; F17.203 Nicotine dependence unspecified, with withdrawal; E83.42 Hypomagnesemia; Z72.89 Other problems related to lifestyle; D53.9 Nutritional anemia, unspecified

== ENCOUNTER 2019-07-14 15:52 | Emergency (ER) | payer MEDICAID ==
[~2019-07-14] VITALS: Ht 180.3 cm; Wt 81.8 kg
[~2019-07-14 15:52] MED LIST changes: +SULFAMETHOXAZOL1 TA2 PO
[2019-07-14 16:20] VITALS: Ht 180.3 cm; Wt 81.8 kg
--- NOTE | 2019-07-14 17:21 | NUR ---
DR. HAQUE NOTIFIED AND REVIEWED PT'S BEHAVIOR AND ASSESSMENT RESULTS. PT IS A LOW RISK PER DR. HAQUE. DR. HAQUE STATED TO GIVE RESOURCES TO PT AT TIME OF DISCHARGE. NO FURTHER ORDERS AT THIS TIME. RESOURCES REVIEWED WITH PT AND HE VERBALIZED UNDERSTANDING. PT DENIES SI AT THIS TIME.
[2019-07-14 19:21] VITALS: BP 153/99
== END 2019-07-14 19:21 | disposition home or self-care (01) ==
LOC: D.ER 15:52
DX: F10.10 Alcohol abuse, uncomplicated (principal); Y90.9 Presence of alcohol in blood, level not specified; F32.9 Major depressive disorder, single episode, unspecified; F15.10 Other stimulant abuse, uncomplicated

== ENCOUNTER 2019-12-08 11:44 | Emergency (ER) | payer MEDICAID ==
[~2019-12-08] VITALS: Ht 180.3 cm; Wt 86.4 kg
[2019-12-08 12:14] VITALS: Ht 180.3 cm; Wt 86.4 kg
[2019-12-08 12:54] LABS: BASOPHILS 0.4 % (0-2); EOSINOPHILS 0 % (0-7); HEMATOCRIT 40.4 % (42.0-54.0); HEMOGLOBIN 13.5 g/dL (13.5-17.5); IMMATURE GRANULOCYTES 0.2 % (0-5); LYMPHOCYTES 18.4 % (15-50); MCH 30.8 pg (26.0-34.0); MCHC 33.4 g/dL (31.0-37.0); MCV 92.2 fL (80.0-100.0); MEAN PLATELET VOLUME 8.8 fL (7.4-10.4); MONOCYTES 9.7 % (2-11); NEUTROPHILS 71.3 % (40-80); RBC 4.38 10x6/uL (4.20-6.10); RDW 13.2 % (11.5-14.5); WBC 8.3 10x3/uL (4.8-10.8)
[2019-12-08 12:56] LABS: PLATELET COUNT 117 10x3/uL (130-400)
[2019-12-08 12:59] LABS: BILIRUBIN NEGATIVE (NEGATIVE); GLUCOSE NEGATIVE (NEGATIVE); KETONE NEGATIVE (NEGATIVE); NITRITE NEGATIVE (NEGATIVE); SPECIFIC GRAVITY 1.005 (1.005-1.020); UROBILINOGEN NORMAL (NORMAL)
[2019-12-08 13:01] LABS: UDS - AMPHET NEGATIVE QUAL (NEGATIVE); UDS - BARB NEGATIVE QUAL (NEGATIVE); UDS - BENZO NEGATIVE QUAL (NEGATIVE); UDS - COCAINE NEGATIVE QUAL (NEGATIVE); UDS - OPIATE NEGATIVE QUAL (NEGATIVE); UDS - PCP NEGATIVE QUAL (NEGATIVE); UDS - THC NEGATIVE QUAL (NEGATIVE)
[2019-12-08 13:02] LABS: CALC OSMOLALITY 279 mosm/kg (275-300); CALCIUM 8.7 mg/dL (8.5-10.1); CARBON DIOXIDE 24.3 mmol/L (21.0-32.0); CHLORIDE - SERUM 99 mmol/L (98-107); GLUCOSE 118 mg/dL (74-106); POTASSIUM - SERUM 3.2 mmol/L (3.5-5.1); SODIUM 138 mmol/L (136-145); UREA NITROGEN 21 mg/dL (7-18); eGFR NON AFRICAN AMERICAN 87 mL/min (90-120)
[2019-12-08 13:06] LABS: BACTERIA FEW /hpf (NEGATIVE); EPITHELIAL CELLS 0-5 /hpf (0-5); RED CELLS - URINE 0-5 /hpf (0-5); WHITE CELLS - URINE 0-5 /hpf (NEGATIVE)
[2019-12-08 13:15] LABS: ALBUMIN 3.9 g/dL (3.4-5.0); ALKALINE PHOSPHATASE 104 U/L (30-120); ALT (SGPT) 63 U/L (10-68); BILIRUBIN - TOTAL 0.47 mg/dL (0.2-1.3)
[2019-12-08 19:14] VITALS: BP 141/89
== END 2019-12-08 19:15 | disposition home or self-care (01) ==
LOC: D.ER 11:44
PROVIDERS: Emergency Medicine
DX: F10.129 Alcohol abuse with intoxication, unspecified (principal); Y90.8 Blood alcohol level of 240 mg/100 ml or more; E87.6 Hypokalemia; E86.0 Dehydration; I10 Essential (primary) hypertension; Z72.0 Tobacco use

== ENCOUNTER 2020-01-12 13:34 | Inpatient (IN) | payer MEDICAID ==
[~2020-01-12] VITALS: Ht 180.3 cm; Wt 95.5 kg
[2020-01-12 14:06] LABS: UDS - AMPHET NEGATIVE QUAL (NEGATIVE); UDS - BARB NEGATIVE QUAL (NEGATIVE); UDS - BENZO NEGATIVE QUAL (NEGATIVE); UDS - COCAINE NEGATIVE QUAL (NEGATIVE); UDS - OPIATE POSITIVE QUAL (NEGATIVE); UDS - PCP NEGATIVE QUAL (NEGATIVE); UDS - THC POSITIVE QUAL (NEGATIVE)
[2020-01-12 14:16] LABS: CALC OSMOLALITY 270 mosm/kg (275-300); CALCIUM 8.3 mg/dL (8.5-10.1); CARBON DIOXIDE 25.8 mmol/L (21.0-32.0); CHLORIDE - SERUM 97 mmol/L (98-107); GLUCOSE 99 mg/dL (74-106); SODIUM 136 mmol/L (136-145); UREA NITROGEN 10 mg/dL (7-18); eGFR NON AFRICAN AMERICAN 87 mL/min (90-120)
[2020-01-12 14:19] LABS: BILIRUBIN NEGATIVE (NEGATIVE); GLUCOSE NEGATIVE (NEGATIVE); KETONE SMALL mg/dL (NEGATIVE); NITRITE NEGATIVE (NEGATIVE); SPECIFIC GRAVITY 1.005 (1.005-1.020); UROBILINOGEN NORMAL (NORMAL); WHITE CELLS - URINE RARE /hpf (NEGATIVE)
[2020-01-12 14:20] LABS: BACTERIA FEW /hpf (NEGATIVE); EPITHELIAL CELLS 0-5 /hpf (0-5); RED CELLS - URINE 0-5 /hpf (0-5)
[2020-01-12 14:23] LABS: BASOPHILS 0.3 % (0-2); EOSINOPHILS 0 % (0-7); HEMATOCRIT 39.8 % (42.0-54.0); HEMOGLOBIN 13.4 g/dL (13.5-17.5); IMMATURE GRANULOCYTES 0.3 % (0-5); LYMPHOCYTES 25.7 % (15-50); MCH 31.7 pg (26.0-34.0); MCHC 33.7 g/dL (31.0-37.0); MCV 94.1 fL (80.0-100.0); MEAN PLATELET VOLUME 9.7 fL (7.4-10.4); MONOCYTES 11.2 % (2-11); NEUTROPHILS 62.5 % (40-80); PLATELET COUNT 115 10x3/uL (130-400); RBC 4.23 10x6/uL (4.20-6.10); RDW 16.1 % (11.5-14.5); WBC 6.9 10x3/uL (4.8-10.8)
[2020-01-12 14:33] LABS: ALBUMIN 3.9 g/dL (3.4-5.0); ALKALINE PHOSPHATASE 95 U/L (30-120); ALT (SGPT) 56 U/L (10-68); BILIRUBIN - TOTAL 0.56 mg/dL (0.2-1.3); CKMB 1.8 U/L (0.0-3.6); CREATINE KINASE 452 UL (21-232); MAGNESIUM - SERUM 1.1 mg/dL (1.8-2.4); THYROID STIMULATING HORMONE 0.96 uIU/mL (0.36-3.74)
[2020-01-12 14:39] LABS: TROPONIN-I < 0.017 ng/mL (0.000-0.060)
[2020-01-12 14:40] LABS: APTT 27.8 SECONDS (22.8-39.4); INR 0.91 (0.85-1.17); PROTIME 12.2 SECONDS (11.6-15.0)
--- NOTE | 2020-01-12 19:57 | NUR ---
SITTING UP IN BED EATING. ALERT AND ORIENTED X4. ANXIOUS, SHAKING FOOT BACK AND FORTH. RESP EVEN AND NONLABORED. MIKE LUCIO IN ROOM AND PT REPORTS THAT HE DRINKS 3 PINTS OF ALCOHOL A DAY AND THINKS HE IS GOING INTO WITHDRAWALS. MEDICATED WITH ATIVAN AT THIS TIME. KCL RIDER INFUSING WITH MVI BAG @ 125 MLHR INF RT HAND. AMBULATORY. SR ELEVATED X2. CL IN REACH
[2020-01-12 20:30] VITALS: BP 140/87; Ht 180.3 cm; Wt 95.5 kg
[2020-01-12] MEDS ORDERED: PAXIL10 MG PO (20:35)
[2020-01-12 20:45] VITALS: BP 144/86
--- NOTE | 2020-01-13 01:29 | NUR ---
LYING ON RT SIDE IN BED. APPETITE IS VERY GOOD. REQUESTED MULTIPLE SNACKS AND ATE 2 SANDWICHES BEFORE GOING TO BED. HAS RESTED WELL SINCE ATIVAN WAS GIVEN. NO DISTRESS. CL IN REACH
--- NOTE | 2020-01-13 03:49 | NUR ---
MEDICATED WITH ATIVAN PER PT REQUEST FOR C/O "TREMORS". CL IN REACH.
[2020-01-13 05:27] VITALS: BP 141/88
[2020-01-13 05:31] LABS: BASOPHILS 0.3 % (0-2); EOSINOPHILS 1.7 % (0-7); HEMATOCRIT 34.7 % (42.0-54.0); HEMOGLOBIN 11.7 g/dL (13.5-17.5); IMMATURE GRANULOCYTES 0.3 % (0-5); LYMPHOCYTES 30.1 % (15-50); MCH 31.7 pg (26.0-34.0); MCHC 33.7 g/dL (31.0-37.0); MEAN PLATELET VOLUME 9.6 fL (7.4-10.4); MONOCYTES 12.4 % (2-11); NEUTROPHILS 55.2 % (40-80); RBC 3.69 10x6/uL (4.20-6.10); RDW 16.5 % (11.5-14.5)
[2020-01-13 05:32] LABS: ALKALINE PHOSPHATASE 114 U/L (30-120); ALT (SGPT) 49 U/L (10-68); BILIRUBIN - TOTAL 0.29 mg/dL (0.2-1.3); CALC OSMOLALITY 282 mosm/kg (275-300); CALCIUM 7.7 mg/dL (8.5-10.1); CARBON DIOXIDE 27.5 mmol/L (21.0-32.0); CHLORIDE - SERUM 103 mmol/L (98-107); CREATININE - SERUM 0.8 mg/dL (0.6-1.3); GLUCOSE 130 mg/dL (74-106); POTASSIUM - SERUM 3.1 mmol/L (3.5-5.1); PROTEIN - SERUM 6.7 g/dL (6.4-8.2); SODIUM 142 mmol/L (136-145); UREA NITROGEN 8 mg/dL (7-18); eGFR NON AFRICAN AMERICAN > 90 mL/min (90-120)
[2020-01-13 05:35] LABS: ALBUMIN 2.9 g/dL (3.4-5.0); MAGNESIUM - SERUM 1.5 mg/dL (1.8-2.4); PLATELET COUNT 90 10x3/uL (130-400); WBC 3.6 10x3/uL (4.8-10.8)
[2020-01-13 08:08] VITALS: BP 146/97
[2020-01-13 09:13] LABS: CKMB 1.2 U/L (0.0-3.6)
[2020-01-13 09:15] LABS: CREATINE KINASE 338 UL (21-232)
[2020-01-13 11:00] LABS: PLATELET ESTIMATE DECREASED
[2020-01-13 12:29] VITALS: BP 159/100
[2020-01-13 17:47] VITALS: BP 159/101
--- NOTE | 2020-01-13 19:20 | NUR ---
PT SITTING UP IN BED WITHOUT DISTRESS, AOX4. IV RIGHT HAND INFUSING NS @ 125. REFUSES SCDS. DENIES NEEDS AT THIS TIME. CL IN REACH, WILL CTM
[2020-01-13 20:00] VITALS: BP 141/98
--- NOTE | 2020-01-13 20:30 | NUR ---
PT REQUESTING HS MEDS, SPECIFICALLY ATIVAN. STATES HE IS FEELING RESTLESS. GAVE ORDERED. DENIES OTHER NEEDS, WILL CTM
--- NOTE | 2020-01-14 03:00 | NUR ---
PT GIVEN PRN ATIVAN FOR TREMORS AND ANXIETY. WILL CTM
[2020-01-14 07:22] LABS: BASOPHILS 0.2 % (0-2); EOSINOPHILS 1.5 % (0-7); HEMATOCRIT 39.9 % (42.0-54.0); IMMATURE GRANULOCYTES 0.4 % (0-5); LYMPHOCYTES 39.9 % (15-50); MCH 31.3 pg (26.0-34.0); MCHC 32.6 g/dL (31.0-37.0); MCV 95.9 fL (80.0-100.0); MEAN PLATELET VOLUME 10.5 fL (7.4-10.4); RBC 4.16 10x6/uL (4.20-6.10); RDW 16.1 % (11.5-14.5)
[2020-01-14 07:28] LABS: PLATELET COUNT 111 10x3/uL (130-400); WBC 4.8 10x3/uL (4.8-10.8)
--- NOTE | 2020-01-14 07:30 | NUR ---
AWAKE AND ALERT. ORIENTED X3. C/O NEED FOR ATIVAN R/T TREMORS AT THIS TIME. WILL GIVE SCHEDULED DOSE SHORTLY. LUNGS ARE CLEAR BILATERALLY, NO COUGH NOTED. SKIN IS INTACT WITHOUT REDNESS. IV TO RIGHT HAND IS PATENT WITHOUT REDNESS AT INSERTION SITE. DENIES NEEDS.
[2020-01-14 07:49] LABS: ALBUMIN 3.3 g/dL (3.4-5.0); ALKALINE PHOSPHATASE 118 U/L (30-120); ALT (SGPT) 46 U/L (10-68); BILIRUBIN - TOTAL 0.45 mg/dL (0.2-1.3); CALC OSMOLALITY 275 mosm/kg (275-300); CALCIUM 8.4 mg/dL (8.5-10.1); CHLORIDE - SERUM 101 mmol/L (98-107); CREATININE - SERUM 0.8 mg/dL (0.6-1.3); GLUCOSE 99 mg/dL (74-106); MAGNESIUM - SERUM 1.3 mg/dL (1.8-2.4); POTASSIUM - SERUM 3.3 mmol/L (3.5-5.1); PROTEIN - SERUM 7.4 g/dL (6.4-8.2); SODIUM 139 mmol/L (136-145); UREA NITROGEN 7 mg/dL (7-18); eGFR NON AFRICAN AMERICAN > 90 mL/min (90-120)
[2020-01-14 08:00] VITALS: BP 143/96
--- NOTE | 2020-01-14 09:00 | NUR ---
TOOK AM MEDS WITHOUT DIFFICULTY INCLUDING ATIVAN. NO TREMORS NOTED AT THIS TIME. ATE MOST OF BREAKFAST THIS AM. DENIES NEEDS.
[2020-01-14 12:00] VITALS: BP 145/106
--- NOTE | 2020-01-14 12:30 | NUR ---
LUNCH SERVED IN ROOM. ATE ALL OF MEAL. DENIES NEEDS.
--- NOTE | 2020-01-14 13:48 | NUR ---
REQUESTED AND GIVEN ATIVAN SLOW IVP PER ORDERS FOR C/O ANXIETY. NO TREMORS NOTED. WILL MONITOR.
[2020-01-14 16:00] VITALS: BP 149/101
--- NOTE | 2020-01-14 16:00 | NUR ---
BANANA BAG INITIATED AT THIS TIME.
--- NOTE | 2020-01-14 18:20 | NUR ---
ATE ALL OF SUPPER. DENIES NEEDS. NO CHANGES NOTED.
--- NOTE | 2020-01-14 20:00 | NUR ---
PT LYING IN BED WITHOUT DISTRESS, AOX4. IV RIGHT HAND INFUSING MVI @ 125. DENIES NEEDS AT THIS TIME. CL IN REACH, WILL CTM
[2020-01-15 04:00] VITALS: BP 145/91
--- NOTE | 2020-01-15 07:42 | NUR ---
ALERT AND ORIENTED. LUNGS CLEAR BILATERALLY. HEART SOUNDS S1 AND S2 HEARD IN ALL BERNAL. BOWEL SOUNDS ACTIVE X 4. IV TO RIGHT HAND PATENT WITHOUT REDNESS. DENIES NEEDS. BED LOW. CALL LIRA AND PERSONAL ITEMS IN REACH. WILL CONTINUE TO MONITOR.
[2020-01-15 08:14] LABS: BASOPHILS 0.4 % (0-2); EOSINOPHILS 1.6 % (0-7); HEMATOCRIT 40.7 % (42.0-54.0); HEMOGLOBIN 13.4 g/dL (13.5-17.5); IMMATURE GRANULOCYTES 0.4 % (0-5); LYMPHOCYTES 32.4 % (15-50); MCH 31.5 pg (26.0-34.0); MCHC 32.9 g/dL (31.0-37.0); MCV 95.8 fL (80.0-100.0); MEAN PLATELET VOLUME 10.7 fL (7.4-10.4); MONOCYTES 9.9 % (2-11); NEUTROPHILS 55.3 % (40-80); RBC 4.25 10x6/uL (4.20-6.10); RDW 15.9 % (11.5-14.5); WBC 5.6 10x3/uL (4.8-10.8)
[2020-01-15 08:21] LABS: PLATELET COUNT 139 10x3/uL (130-400)
[2020-01-15 08:37] LABS: ALBUMIN 3.5 g/dL (3.4-5.0); ALKALINE PHOSPHATASE 96 U/L (30-120); BILIRUBIN - TOTAL 0.52 mg/dL (0.2-1.3); CALCIUM 8.3 mg/dL (8.5-10.1); CARBON DIOXIDE 25.2 mmol/L (21.0-32.0); CHLORIDE - SERUM 101 mmol/L (98-107); CREATININE - SERUM 0.8 mg/dL (0.6-1.3); GLUCOSE 85 mg/dL (74-106); PROTEIN - SERUM 7.8 g/dL (6.4-8.2); SODIUM 137 mmol/L (136-145); eGFR NON AFRICAN AMERICAN > 90 mL/min (90-120)
[2020-01-15 08:40] LABS: ALT (SGPT) 58 U/L (10-68); CALC OSMOLALITY 272 mosm/kg (275-300); MAGNESIUM - SERUM 1.7 mg/dL (1.8-2.4); UREA NITROGEN 12 mg/dL (7-18)
[2020-01-15 08:48] VITALS: BP 150/97
--- NOTE | 2020-01-15 10:11 | NUR ---
IV OUT TO RIGHT HAND. PATIENT NOW IN SHOWER. WILL ATTEMPT TO RESITE.
--- NOTE | 2020-01-15 10:49 | NUR ---
ATTEMPTED TO RESITE IV TO LEFT HAND ONCE WITH 22GAUGE WITHOUT SUCCESS. SECOND RN TO ATTEMPT.
--- NOTE | 2020-01-15 11:48 | NUR ---
IV RESITED TO RIGHT HAND AFTER ONE ATTEMPT WITH 22GAUGE BY SECOND RN.
[2020-01-15 13:07] VITALS: BP 149/98
[2020-01-15 14:03] LABS: CREATINE KINASE 196 UL (21-232)
--- NOTE | 2020-01-15 15:45 | NUR ---
REQUESTED AND GIVEN BRAYDON. DENIES NEEDS. WILL CONTINUE TO MONITOR.
--- NOTE | 2020-01-15 16:27 | MORECARE ---
CASE MANAGEMENT DISCHARGE SUMMARY PATIENT: OSWALDO VILLEGAS UNIT: [id number] ADM DATE: 01/13/20 AGE: 44 : [birth year] SEX: M ROOM/BED: D.2233 AUTHOR: JEB GOMEZ PHYSICIAN: REFERRING PHYSICIAN: DOMINIC SAMUELS MD DATE OF SERVICE: 01/15/20 Discharge Plan Patient Name: OSWALDO VILLEGAS Facility: [facility]:[place] : 1975 Planned Disposition: Anticipated Discharge Date: Discharge Date: Expected LOS: Initial Reviewer: [email or web address] Initial Review Date: 01/15/2020 Generated: 01/15/20 5:26 pm Comments DCP- Discharge Planning Updated by [email or web address]: Pinky Kelley on 01/15/20 3:[address] Patient Name: OSWALDO VILLEGAS Admission Status: ER Accout number: [id number] Admission Date: 01-13-2020 : 1975 Admission Diagnosis:ALTERED MENTAL STATUS, UNSPECIFIED Attending: DOMINIC SAMUELS Current LOS: 2 Anticipated DC Date: Planned Disposition: Primary Insurance: MEDICAID [place] Discharge Planning Comments: CM met with patient at bedside after explaining CM role and obtaining verbal consent. CM discussed availability / needs of home health, REHAB and medical equipment. PATIENT STATES PLANS TO DC TO HOME, HE MAY GO TO [facility]. INFORMATION WAS GIVEN TO HIM TO CALL [facility] BECAUSE THE PATIENT HAS TO CALL TO GET TREATMENT. CM WILL FOLLOW AND ASSIST NEEDED. Care Management Coordinator: Pinky Kelley DCPIA - Discharge Planning Initial Assessment Updated by [email or web address]: Pinky Kelley on 01/15/20 4:23 pm * Is the patient Alert and Oriented? Yes * PCP CORDELL * Pharmacy [facility] * Preadmission Environment Home with Family * ADLs Independent * Additional services required to return to the preadmission environment? No * Can the patient safely return to the preadmission environment? Yes * Has this patient been hospitalized within the prior 30 days at any hospital? No Patient Name: OSWALDO VILLEGAS Page 98091 at 1627 All edits/amendments must be made on the electronic document DICTATION DATE: 01/15/201625 HOME HEALTH CLINICAL LIAISON: TAMIKO 01/15/201625 RPT#: [id number] DC DATE: STATUS: ADM IN [facility] [address] [place] [address] END OF REPORT
[2020-01-15 16:43] VITALS: BP 137/99
--- NOTE | 2020-01-15 19:30 | NUR ---
PT SITTING UP IN BED WITHOUT DISTRESS, AOX4. IV RIGHT FA INFUSING MVI @ 125. DENIES NEEDS AT THIS TIME. CL IN REACH, WILL CTM
[2020-01-15 20:00] VITALS: BP 158/102
[2020-01-16] VITALS: BP 123/83
--- NOTE | 2020-01-16 02:45 | NUR ---
PT REQUESTED AND GIVEN ATIVAN FOR TREMORS. DENIES OTHER NEEDS. WILL CTM
[2020-01-16 04:00] VITALS: BP 129/89
[2020-01-16 07:01] LABS: ALKALINE PHOSPHATASE 82 U/L (30-120); ALT (SGPT) 57 U/L (10-68); BILIRUBIN - TOTAL 0.52 mg/dL (0.2-1.3); CALC OSMOLALITY 267 mosm/kg (275-300); CHLORIDE - SERUM 103 mmol/L (98-107); CREATININE - SERUM 0.8 mg/dL (0.6-1.3); GLUCOSE 86 mg/dL (74-106); MAGNESIUM - SERUM 1.7 mg/dL (1.8-2.4); PROTEIN - SERUM 6.9 g/dL (6.4-8.2); SODIUM 135 mmol/L (136-145); UREA NITROGEN 11 mg/dL (7-18); eGFR NON AFRICAN AMERICAN > 90 mL/min (90-120)
[2020-01-16 07:33] LABS: BASOPHILS 0.2 % (0-2); EOSINOPHILS 1.7 % (0-7); HEMATOCRIT 37.2 % (42.0-54.0); HEMOGLOBIN 12.3 g/dL (13.5-17.5); IMMATURE GRANULOCYTES 0.5 % (0-5); LYMPHOCYTES 31.3 % (15-50); MCH 32.2 pg (26.0-34.0); MCHC 33.1 g/dL (31.0-37.0); MCV 97.4 fL (80.0-100.0); MEAN PLATELET VOLUME 10.2 fL (7.4-10.4); MONOCYTES 12.2 % (2-11); NEUTROPHILS 54.1 % (40-80); PLATELET COUNT 141 10x3/uL (130-400); RBC 3.82 10x6/uL (4.20-6.10); RDW 16.1 % (11.5-14.5); WBC 6.3 10x3/uL (4.8-10.8)
--- NOTE | 2020-01-16 07:56 | NUR ---
ALERT AND ORIENTED X4 IVF INFUSING TO RIGHT HAND WITH NO S/S OF INFECTION/INFILTRATION. SCD'S ON AT THIS TIME. DENIES ANY PAIN OR DISCOMFORT AT THIS TIME. REFUSES TELEMETRY. ABDOMEN SOFT WITH BOWEL SOUNDS NOTED. HRRR WITH SKIN INTACT. [id number] TO USE CALL LIGHT FOR ASSSIT.
[2020-01-16 08:00] VITALS: BP 160/106
[2020-01-16 12:00] VITALS: BP 168/106
[2020-01-16] MEDS ORDERED: CHRONULAC30 ML PO (12:14)
[2020-01-16] MEDS ORDERED: CATAPRES0.1 MG PO (12:14)
[2020-01-16] MEDS ORDERED: NICODERM CQ1 EAC3 TRANSDERM (12:14)
[2020-01-16] MEDS ORDERED: LIBRIUM25 MG PO (12:15)
[2020-01-16] MEDS ORDERED: FOLIC ACID1 MG PO (12:15)
[2020-01-16] MEDS ORDERED: ATIVAN1 MG PO (12:15)
[2020-01-16] MEDS ORDERED: VITAMIN B-1100 M1 PO (12:15)
--- NOTE | 2020-01-16 12:17 | MORECARE ---
CASE MANAGEMENT DISCHARGE SUMMARY PATIENT: OSWALDO VILLEGAS UNIT: [id number] ADM DATE: 01/13/20 AGE: 44 : 79 SEX: M ROOM/BED: D.2233 AUTHOR: JEB GOMEZ PHYSICIAN: REFERRING PHYSICIAN: DOMINIC SAMUELS MD DATE OF SERVICE: 01/16/20 Discharge Plan Patient Name: OSWALDO VILLEGAS Facility: [facility]:[place] : 1975 Planned Disposition: Anticipated Discharge Date: Discharge Date: Expected LOS: Initial Reviewer: [email or web address] Initial Review Date: 01/15/2020 Generated: 01/16/20 1:16 pm Comments DCP- Discharge Planning Updated by [email or web address]: Pinky Kelley on 01/16/20 11:[address] Patient Name: OSWALDO VILLEGSA Admission Status: ER Accout number: [id number] Admission Date: 01-13-2020 : 1975 Admission Diagnosis:ALTERED MENTAL STATUS, UNSPECIFIED Attending: DOMINIC SAMUELS Current LOS: 3 Anticipated DC Date: Planned Disposition: Primary Insurance: MEDICAID [place] Discharge Planning Comments: CM MET WITH PATIENT AGAIN ABOUT ALCOHOL REHAB. [facility] IS NO LONGER OPEN. PATIENT STATES HE WAS AWARE OF THAT BUT HE HAS PLANS TO GET AN OLD SPONSER AND TRY TO STAY QUIT AT HOME. STATES HE HAS SOMEONE TO PICK HIM UP WHEN DISCHARGED. Emergency Management System Director: Pinky Kelley DCP- Discharge Planning Updated by [id number]: Pinky Kelley on 01/15/20 3:[address] Patient Name: OSWALDO VILLEGAS Admission Status: ER Accout number: [id number] Admission Date: 01-13-2020 : 1975 Admission Diagnosis:ALTERED MENTAL STATUS, UNSPECIFIED Attending: DOMINIC SAMUELS Current LOS: 2 Anticipated DC Date: Planned Disposition: Primary Insurance: MEDICAID [place] Discharge Planning Comments: CM met with patient at bedside after explaining CM role and obtaining verbal consent. CM discussed availability / needs of home health, REHAB and medical equipment. PATIENT STATES PLANS TO DC TO HOME, HE MAY GO TO [facility]. INFORMATION WAS GIVEN TO HIM TO CALL [facility] BECAUSE THE PATIENT HAS TO CALL TO GET TREATMENT. CM WILL FOLLOW AND ASSIST NEEDED. Emergency Management System Director: Pinky Kelley DCPIA - Discharge Planning Initial Assessment Updated by [id number]: Pinky Kelley on 01/15/20 4:23 pm * Is the patient Alert and Oriented? Yes * PCP CORDELL * Pharmacy [facility] * Preadmission Environment Home with Family * ADLs Independent * Additional services required to return to the preadmission environment? No * Can the patient safely return to the preadmission environment? Yes * Has this patient been hospitalized within the prior 30 days at any hospital? No Last DP export: 01/15/20 3:27 p Patient Name: OSWALDO VILLEGAS Page 73908 at 1217 All edits/amendments must be made on the electronic document DICTATION DATE: 01/16/201215 PASTRY ASSISTANT: TAMIKO 01/16/20 1216 RPT#: [id number] DC DATE: STATUS: ADM IN [facility] [address] [place] [address] END OF REPORT
--- NOTE | 2020-01-16 16:26 | NUR ---
IV DISCONTINUED AND VERBALIZED UNDERSTANDING OF DISCHARGE INSTRUCTIONS. STABLE UPON LEAVING UNDER CARE OF FAMILY
--- NOTE | 2020-01-19 08:31 | MORECARE ---
CASE MANAGEMENT DISCHARGE SUMMARY PATIENT: OSWALDO VILLEGAS UNIT: [id number] ADM DATE: 01/13/20 AGE: 44 : 79 SEX: M ROOM/BED: D.2233 AUTHOR: PATRICIA,DOC PHYSICIAN: REFERRING PHYSICIAN: DOMINIC SAMUELS MD DATE OF SERVICE: 01/19/20 Discharge Plan Patient Name: OSWALDO VILLEGAS Facility: [facility]:[place] : 1975 Planned Disposition: Anticipated Discharge Date: Discharge Date: 01/16/2020 Expected LOS: Initial Reviewer: [email or web address] Initial Review Date: 01/15/2020 Generated: 01/19/20 9:31 am Comments DCP- Discharge Planning Updated by [email or web address]: Pinky Kelley on 01/16/20 11:[address] Patient Name: OSWALDO VILLEGAS Admission Status: ER Accout number: [id number] Admission Date: 01-13-2020 : 1975 Admission Diagnosis:ALTERED MENTAL STATUS, UNSPECIFIED Attending: DOMINIC SAMUELS Current LOS: 3 Anticipated DC Date: Planned Disposition: Primary Insurance: MEDICAID [place] Discharge Planning Comments: CM MET WITH PATIENT AGAIN ABOUT ALCOHOL REHAB. [facility] IS NO LONGER OPEN. PATIENT STATES HE WAS AWARE OF THAT BUT HE HAS PLANS TO GET AN OLD SPONSER AND TRY TO STAY QUIT AT HOME. STATES HE HAS SOMEONE TO PICK HIM UP WHEN DISCHARGED. Facility Service Associate: Pinky Kelley DCP- Discharge Planning Updated by [email or web address]: Pinky Kelley on 01/15/20 3:[address] Patient Name: OSWALDO VILLEGAS Admission Status: ER Accout number: [id number] Admission Date: 01-13-2020 : 1975 Admission Diagnosis:ALTERED MENTAL STATUS, UNSPECIFIED Attending: DOMINIC SAMUELS Current LOS: 2 Anticipated DC Date: Planned Disposition: Primary Insurance: MEDICAID [place] Discharge Planning Comments: CM met with patient at bedside after explaining CM role and obtaining verbal consent. CM discussed availability / needs of home health, REHAB and medical equipment. PATIENT STATES PLANS TO DC TO HOME, HE MAY GO TO [facility]. INFORMATION WAS GIVEN TO HIM TO CALL [facility] BECAUSE THE PATIENT HAS TO CALL TO GET TREATMENT. CM WILL FOLLOW AND ASSIST NEEDED. Facility Service Associate: Pinky Kelley DCPIA - Discharge Planning Initial Assessment Updated by [email or web address]: Pinky Kelley on 01/15/20 4:23 pm * Is the patient Alert and Oriented? Yes * PCP [facility] * Pharmacy [facility] * Preadmission Environment Home with Family * ADLs Independent * Additional services required to return to the preadmission environment? No * Can the patient safely return to the preadmission environment? Yes * Has this patient been hospitalized within the prior 30 days at any hospital? No Last DP export: 01/16/20 11:17 a Patient Name: OSWALDO VILLEGAS Page 86771 at 0831 All edits/amendments must be made on the electronic document DICTATION DATE: 01/19/20830 NETWORK SECURITY OFFICER: TAMIKO 01/19/20830 RPT#: [id number] DC DATE:01/16/20 STATUS: DIS IN [facility] [address] [place] [address] END OF REPORT
--- NOTE | 2020-01-19 10:06 | MORECARE ---
CASE MANAGEMENT DISCHARGE SUMMARY PATIENT: OSWALDO VILLEGAS UNIT: [id number] ADM DATE: 01/13/20 AGE: 44 : 79 SEX: M ROOM/BED: D.2233 AUTHOR: PATRICIADOC PHYSICIAN: REFERRING PHYSICIAN: DOMINIC SAMUELS MD DATE OF SERVICE: 01/19/20 Discharge Plan Patient Name: OSWALDO VILLEGAS Facility: [facility]:[place] : 1975 Planned Disposition: Home Anticipated Discharge Date: 02/16/20 Discharge Date: 01/16/2020 Expected LOS: 34 Initial Reviewer: [email or web address] Initial Review Date: 01/15/2020 Generated: 01/19/20 11:06 am Comments DCP- Discharge Planning Updated by [email or web address]: Pinky Kelley on 01/16/20 11:[address] Patient Name: OSWALDO VILLEGAS Admission Status: ER Accout number: [id number] Admission Date: 01-13-2020 : 1975 Admission Diagnosis:ALTERED MENTAL STATUS, UNSPECIFIED Attending: DOMINIC SAMUELS Current LOS: 3 Anticipated DC Date: Planned Disposition: Primary Insurance: MEDICAID [place] Discharge Planning Comments: CM MET WITH PATIENT AGAIN ABOUT ALCOHOL REHAB. [facility] IS NO LONGER OPEN. PATIENT STATES HE WAS AWARE OF THAT BUT HE HAS PLANS TO GET AN OLD SPONSER AND TRY TO STAY QUIT AT HOME. STATES HE HAS SOMEONE TO PICK HIM UP WHEN DISCHARGED. Photograph Inspector: Pinky Kelley DCP- Discharge Planning Updated by [email or web address]: Pinky Kelley on 01/15/20 3:[address] Patient Name: OSWALDO VILLEGAS Admission Status: ER Accout number: [id number] Admission Date: 01-13-2020 : 1975 Admission Diagnosis:ALTERED MENTAL STATUS, UNSPECIFIED Attending: DOMINIC SAMUELS Current LOS: 2 Anticipated DC Date: Planned Disposition: Primary Insurance: MEDICAID [place] Discharge Planning Comments: CM met with patient at bedside after explaining CM role and obtaining verbal consent. CM discussed availability / needs of home health, REHAB and medical equipment. PATIENT STATES PLANS TO DC TO HOME, HE MAY GO TO [facility]. INFORMATION WAS GIVEN TO HIM TO CALL [facility] BECAUSE THE PATIENT HAS TO CALL TO GET TREATMENT. CM WILL FOLLOW AND ASSIST NEEDED. Photograph Inspector: Pinky Kelley DCPIA - Discharge Planning Initial Assessment Updated by [email or web address]: Pinky Kelley on 01/15/20 4:23 pm * Is the patient Alert and Oriented? Yes * PCP [facility] * Pharmacy [facility] * Preadmission Environment Home with Family * ADLs Independent * Additional services required to return to the preadmission environment? No * Can the patient safely return to the preadmission environment? Yes * Has this patient been hospitalized within the prior 30 days at any hospital? No Last DP export: 01/19/20 7:31 am Patient Name: OSWALDO VILLEGAS Page 88865 at 1006 All edits/amendments must be made on the electronic document DICTATION DATE: 01/19/20 1006 ASBESTOS WORKER HELPER: TAMIKO 01/19/20 1006 RPT#: [id number] DC DATE:01/16/20 STATUS: DIS IN [facility] [address] [place] [address] END OF REPORT
== END 2020-01-16 16:27 | disposition home or self-care (01) | DRG 896 ==
LOC: D.ER 13:34 → D.MS 16:13 → OBSVTIME 16:14 → D.MS 17:41
PROVIDERS: Emergency Medicine; Family Medicine; ADMIT Internal Medicine Nephrology; ATTEND Internal Medicine Nephrology
DX: F10.239 Alcohol dependence with withdrawal, unspecified (principal); G93.41 Metabolic encephalopathy; M62.82 Rhabdomyolysis; F17.203 Nicotine dependence unspecified, with withdrawal; Y90.8 Blood alcohol level of 240 mg/100 ml or more; F12.10 Cannabis abuse, uncomplicated; E87.6 Hypokalemia; D64.9 Anemia, unspecified; I10 Essential (primary) hypertension; D69.6 Thrombocytopenia, unspecified; F10.229 Alcohol dependence with intoxication, unspecified

== ENCOUNTER 2020-02-01 14:01 | Emergency (ER) | payer MEDICAID ==
[~2020-02-01] VITALS: Ht 180.3 cm; Wt 79.5 kg
[~2020-02-01 14:01] MED LIST changes: +ATIVAN1 MG PO; +CHRONULAC30 ML PO; +FOLIC ACID1 MG PO; +NICODERM CQ1 EAC3 TRANSDERM; +PAXIL10 MG PO; +VITAMIN B-1100 M1 PO
[2020-02-01 14:02] VITALS: Ht 180.3 cm; Wt 79.5 kg
[2020-02-01 14:21] LABS: BILIRUBIN NEGATIVE (NEGATIVE); GLUCOSE NEGATIVE (NEGATIVE); KETONE NEGATIVE (NEGATIVE); NITRITE NEGATIVE (NEGATIVE); SPECIFIC GRAVITY 1.015 (1.005-1.020); UROBILINOGEN NORMAL (NORMAL)
[2020-02-01 14:35] LABS: EOSINOPHILS 0.4 % (0-7); HEMOGLOBIN 13.5 g/dL (13.5-17.5); IMMATURE GRANULOCYTES 0.3 % (0-5); LYMPHOCYTES 33.7 % (15-50); MCH 31.9 pg (26.0-34.0); MCHC 32.9 g/dL (31.0-37.0); MCV 96.9 fL (80.0-100.0); MEAN PLATELET VOLUME 8.9 fL (7.4-10.4); MONOCYTES 5.8 % (2-11); NEUTROPHILS 58.8 % (40-80); RBC 4.23 10x6/uL (4.20-6.10); RDW 16.2 % (11.5-14.5); WBC 6.9 10x3/uL (4.8-10.8)
[2020-02-01 14:39] LABS: PLATELET COUNT 173 10x3/uL (130-400)
[2020-02-01 14:41] LABS: CALC OSMOLALITY 283 mosm/kg (275-300); CALCIUM 8.8 mg/dL (8.5-10.1); CARBON DIOXIDE 26.8 mmol/L (21.0-32.0); CHLORIDE - SERUM 102 mmol/L (98-107); POTASSIUM - SERUM 3.6 mmol/L (3.5-5.1); SODIUM 142 mmol/L (136-145); UREA NITROGEN 7 mg/dL (7-18); eGFR NON AFRICAN AMERICAN 87 mL/min (90-120)
[2020-02-01 14:43] LABS: GLUCOSE 156 mg/dL (74-106)
[2020-02-01 14:44] LABS: UDS - AMPHET NEGATIVE QUAL (NEGATIVE); UDS - BARB NEGATIVE QUAL (NEGATIVE); UDS - BENZO POSITIVE QUAL (NEGATIVE); UDS - COCAINE NEGATIVE QUAL (NEGATIVE); UDS - OPIATE NEGATIVE QUAL (NEGATIVE); UDS - PCP NEGATIVE QUAL (NEGATIVE); UDS - THC POSITIVE QUAL (NEGATIVE)
[2020-02-01 14:47] LABS: ALBUMIN 3.7 g/dL (3.4-5.0); ALKALINE PHOSPHATASE 110 U/L (30-120); ALT (SGPT) 52 U/L (10-68); BILIRUBIN - TOTAL 0.25 mg/dL (0.2-1.3); MAGNESIUM - SERUM 1.5 mg/dL (1.8-2.4); PROTEIN - SERUM 8.3 g/dL (6.4-8.2)
[2020-02-01 16:54] LABS: CKMB 5.4 U/L (0.0-3.6); CREATINE KINASE 608 UL (21-232)
[2020-02-01 17:14] LABS: TROPONIN-I < 0.017 ng/mL (0.000-0.060)
[2020-02-01 21:41] LABS: CKMB 3.8 U/L (0.0-3.6); CREATINE KINASE 551 UL (21-232)
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
[2020-02-01 23:26] VITALS: BP 148/88
== END 2020-02-01 23:26 | disposition home or self-care (01) ==
LOC: D.ER 14:01
PROVIDERS: Emergency Medicine; Family Medicine
DX: F10.129 Alcohol abuse with intoxication, unspecified (principal); Y90.8 Blood alcohol level of 240 mg/100 ml or more; R45.851 Suicidal ideations; Z76.5 Malingerer [conscious simulation]; S00.83XA Contusion of other part of head, initial encounter

== ENCOUNTER 2020-10-20 18:39 | Emergency (ER) | payer MEDICAID ==
[~2020-10-20] VITALS: Ht 180.3 cm; Wt 81.8 kg
[2020-10-20 18:43] VITALS: Ht 180.3 cm; Wt 81.8 kg
[2020-10-20 19:03] LABS: BASOPHILS 0.2 % (0-2); EOSINOPHILS 0.4 % (0-7); HEMATOCRIT 35.2 % (42.0-54.0); HEMOGLOBIN 12.2 g/dL (13.5-17.5); IMMATURE GRANULOCYTES 0.1 % (0-5); LYMPHOCYTE ABS# 2.47 10x3/uL (1.32-3.57); LYMPHOCYTES 18.7 % (15-50); MCH 35.3 pg (26.0-34.0); MCHC 34.7 g/dL (31.0-37.0); MCV 101.7 fL (80.0-100.0); MEAN PLATELET VOLUME 9.3 fL (7.4-10.4); MONOCYTES 6.3 % (2-11); NEUTROPHIL ABS# 9.81 10x3/uL (1.78-5.38); NEUTROPHILS 74.3 % (40-80); PLATELET COUNT 141 10x3/uL (130-400); RBC 3.46 10x6/uL (4.20-6.10); RDW 13.7 % (11.5-14.5); WBC 13.2 10x3/uL (4.8-10.8)
[2020-10-20 19:16] LABS: UDS - AMPHET POSITIVE QUAL (NEGATIVE); UDS - BARB NEGATIVE QUAL (NEGATIVE); UDS - BENZO NEGATIVE QUAL (NEGATIVE); UDS - COCAINE NEGATIVE QUAL (NEGATIVE); UDS - OPIATE NEGATIVE QUAL (NEGATIVE); UDS - PCP NEGATIVE QUAL (NEGATIVE); UDS - THC POSITIVE QUAL (NEGATIVE)
[2020-10-20 19:16] LABS: NITRITE NEGATIVE (NEGATIVE)
[2020-10-20 19:17] LABS: BACTERIA FEW HPF (NONE SEEN); BILIRUBIN NEGATIVE (NEGATIVE); KETONE MODERATE mg/dL (NEGATIVE); WHITE CELLS - URINE 0-5 HPF (0-1)
[2020-10-20 19:34] LABS: BILIRUBIN - TOTAL 1.35 mg/dL (0.2-1.3); CALCIUM 9.1 mg/dL (8.5-10.1); CARBON DIOXIDE 23.6 mmol/L (21.0-32.0); CREATININE - SERUM 1.5 mg/dL (0.6-1.3)
[2020-10-20 19:38] LABS: ANION GAP 21.3 mmol/L (8-16); POTASSIUM - SERUM 2.9 mmol/L (3.5-5.1)
[2020-10-20 20:27] LABS: CREATINE KINASE 376 UL (21-232)
[2020-10-20 20:29] LABS: CKMB 2.2 U/L (0.0-3.6)
[2020-10-20 22:04] VITALS: BP 183/84
== END 2020-10-20 22:04 | disposition home or self-care (01) ==
LOC: D.ER 18:39
PROVIDERS: Family Medicine
DX: F15.10 Other stimulant abuse, uncomplicated (principal); E86.0 Dehydration; E87.6 Hypokalemia; E83.42 Hypomagnesemia